=== PATIENT | female | born 1980 | race Caucasian/White ===

== ENCOUNTER 2016-04-17 20:26 | Emergency (ER) | payer BC, OTHER ==
[2016-04-17 20:44] VITALS: BP 101/70
[2016-04-17] MEDS ORDERED: Ibuprofen TAB* 600 MG PO ONE (21:05)
--- NOTE | 2016-04-17 21:16 | UC ---
FLU HPI - HPI Summary HPI Summary: 35 YEAR OLD FEMALE WITH COMPLAINTS OF SUDDEN ONSET OF FEVER, CHILLS, HEADACHE, SORE THROAT, BODY ACHES, AND COUGH LAST EVENING. 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 Negative: Vomiting, Diarrhea Related Hx: Possible Flu/Infectious Exposure - Risk Factors Influenza Risk Factors: Negative - Allergy/Home Medications Allergies/Adverse Reactions: Allergies Allergy/AdvReac Type Severity Reaction Status Date / Time Latex Allergy Intermediate Hives Verified 04/17/16 20:44 Home Medications: Home Medications Ibuprofen [Advil] 600 mg PO PRN 04/17/16 [History] Pseudoephedrine HCl [Sudafed Nasal Decongestan] 30 mg PO Q4HR PRN 04/17/16 [ History Confirmed 04/17/16] PMH/Surg Hx/FS Hx/Imm Hx Previously Healthy: Yes Endocrine History Of: Denies: Diabetes, Thyroid Disease Cardiovascular History Of: Denies: Cardiac Disorders, Hypertension Respiratory History Of: Denies: COPD, Asthma GI/ History Of: Denies: Ulcer - Surgical History Surgical History: None - Family History Known Family History: Negative: Hypertension, Diabetes - Social History Occupation: Employed Full-time - TEACHER Alcohol Use: Occasionally Substance Use Type: Marijuana Substance Use Comment - Amount & Last Used: infrequent usage Smoking Status (MU): Never Smoked Tobacco - Immunization History Most Recent Influenza Vaccination: no Review of Systems Constitutional: Fever, Chills Skin: Negative Eyes: Negative ENT: Sore Throat, Nasal Discharge Respiratory: Cough Cardiovascular: Negative Gastrointestinal: Negative Genitourinary: Negative Motor: Negative Neurovascular: Negative Musculoskeletal: Myalgia Neurological: Headache Psychological: Negative All Other Systems Reviewed And Are Negative: Yes Physical Exam Triage Information Reviewed: Yes Appearance: No Pain Distress, Well-Nourished, Ill-Appearing - MILDLY Vital Signs: Initial Vital Signs Temp 100.4 F 04/17/16 20:38 Pulse 113 04/17/16 20:38 Resp 16 04/17/16 20:38 BP 101/70 04/17/16 20:38 Pulse Ox 97 04/17/16 20:38 Vital Signs Reviewed: Yes Eyes: Positive: Conjunctiva Clear. Negative: Discharge ENT: Positive: Pharyngeal erythema, Nasal congestion, Tonsillar swelling, Tonsillar exudate. Negative: Nasal drainage Neck: Positive: Supple, Nontender, Enlarged Nodes @ - BILATERAL AC Respiratory: Positive: Lungs clear, Normal breath sounds Cardiovascular: Positive: RRR, No Murmur Musculoskeletal: Positive: Strength Intact, ROM Intact Neurological: Positive: Alert, Muscle Tone Normal Psychological: Positive: Age Appropriate Behavior - PLEASANT AND COOPERATIVE Skin: Negative: rashes Flu Course/Dx - Course Course Of Treatment: RAPID STREP - NEGATIVE. RAPID INFLUENZA - INFLUENZA A POSITIVE. IBUPROFEN - Differential Dx/Diagnosis Differential Diagnosis/HQI/PQRI: Influenza, Upper Respiratory Infection Provider Diagnoses: INFLUENZA A Discharge - Discharge Plan Condition: Stable Disposition: HOME Patient Education Materials: Influenza (ED) Additional Instructions: YOU HAVE DECLINED THE TAMAFLU PRESCRIPTION. IF YOU START THE MEDICATION WITH IN THE FIRST 3 DAYS IT COULD SHORTEN THE DURATION OF YOUR ILLNESS AND POTENTIALLY LESSEN YOUR SYMPTOMS. CALL YOUR DOCTOR IF YOU CHANGE YOUR MIND Take Ibuprofen 600mg every 6 hour as needed for pain or fever
== END 2016-04-17 21:53 | disposition home or self-care (01) ==
LOC: UCEAST 20:26
DX: J09.X2 Influenza due to identified novel influenza A virus with other respiratory manifestations (principal); F12.90 Cannabis use, unspecified, uncomplicated
CPT/HCPCS: 87502; 87651; 99212; A9270-GY; G0463

== ENCOUNTER 2016-09-11 14:54 | Emergency (ER) | payer BC ==
[2016-09-11] MEDS ORDERED: Aspirin Low Dose CHEW TAB* 81 MG PO ONE (15:11)
[2016-09-11] MEDS ORDERED: Aspirin Low Dose CHEW TAB* 81 MG ONE (15:13)
[2016-09-11 15:14] VITALS: BP 150/98
[2016-09-11] MEDS ORDERED: NS 0.9% 1000 ML* 1,000 ML IV ONE (15:18)
[2016-09-11] MEDS ORDERED: Heparin 2 UNITS/ML IVPREMIX* 3,000 ML IV ONE (15:23)
[2016-09-11] MEDS ORDERED: fentaNYL* 50 MCG/ML 2 ML VIAL (100 MCG VIAL) ONE (15:23)
[2016-09-11] MEDS ORDERED: nitroGLYCERIN DRIP* 250 ML ONE (15:23)
[2016-09-11] MEDS ORDERED: Midazolam* 1 MG/ML 5 ML VIAL (5 MG) ONE (15:23)
[2016-09-11] MEDS ORDERED: Lidocaine 1% INJ* 10 MG/ML 30 ML SDV ONE (15:24)
[2016-09-11] MEDS ORDERED: Iohexol 350 (CONTRAST) 200 ML MDV IV ONE ×2 (15:24→16:19)
[2016-09-11] MEDS ORDERED: NS 0.9% 1000 ML* 1,000 ML BOLUS SCH (15:30)
[2016-09-11] MEDS ORDERED: Ticagrelor* 90 MG TAB PO ONE (15:36)
[2016-09-11] MEDS ORDERED: Heparin(*) 1000 UNIT/ML 10 ML VIAL CATH LAB IV ONE (15:36)
--- NOTE | 2016-09-11 15:43 | UC ---
Olman Yeung Benjamin, scribed for Wilma Newman MD on 09/11/16 at 1515 . Cardiac HPI - HPI Summary HPI Summary: 36yo female c/o having mid sternal chest pressure this morning around 0730 that radiates to bilateral arms and jaw, then tingling in bilateral arms and with feeling like her arms are asleep. This sensation is worse on the right arm. Pt also states that she felt hot earlier today. Pt symptoms started to gradually get worse after lunch. Now, she quotes feels weird, just doesn't feel well. Pt rates the pain as 3-4 out of 10 scale. FHx of CAD after 70, no FHx of CVA or PE. Pt denies any PMHx of CAD. 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 No DM, HTN or dyslipidemia. - History of Current Complaint Chief Complaint: UCChestPain Stated Complaint: ARM PAIN Time Seen by Provider: 09/11/16 14:59 Hx Obtained From: Patient Onset/Duration: Gradual Onset, Lasting Hours - since this morning 0730, Still Present, Worse Since - gradually worsened throughout the day Timing: Constant Initial Severity: Mild Current Severity: Mild Pain Intensity: 4 Chest Pain Location: Mid Sternal Character: Pressure/Squeezing Aggravating: Nothing Alleviating: Nothing Associated Signs & Symptoms: Positive: Chest Pain - radiates to bilateral arms. Negative: SOB - Risk Factors Pulmonary Embolism Risk Factors: Negative Cardiac Risk Factors: Family History - after age 70 Atrial Fibrillation: Negative TAD Risk Factors: Negative AMI/ACS Risk Factors: Obesity - Allergy/Home Medications Allergies/Adverse Reactions: Allergies Allergy/AdvReac Type Severity Reaction Status Date / Time Latex Allergy Intermediate Hives Verified 09/11/16 15:06 PMH/Surg Hx/FS Hx/Imm Hx Previously Healthy: Yes - Surgical History Surgical History: None - Family History Known Family History: Positive: Cardiac Disease - CAD after 70 Negative: Hypertension, Diabetes - Social History Occupation: Employed Full-time - school counselor Lives: With Family - has a Nirmala Alcohol Use: Occasionally Substance Use Type: Marijuana Substance Use Comment - Amount & Last Used: infrequent usage Smoking Status (MU): Never Smoked Tobacco - Immunization History Most Recent Influenza Vaccination: no Review of Systems Constitutional: Negative Skin: Negative Eyes: Negative ENT: Negative Respiratory: Negative Cardiovascular: Chest Pain - Mid sternal pressure, radiating to bilat arms. Gastrointestinal: Negative Genitourinary: Negative Motor: Negative Neurovascular: Negative Musculoskeletal: Negative Neurological: Negative Psychological: Negative All Other Systems Reviewed And Are Negative: Yes Physical Exam Triage Information Reviewed: Yes Appearance: Ill-Appearing, Pain Distress, Obese Vital Signs: Initial Vital Signs Temp 97.7 F 09/11/16 15:06 Pulse 65 09/11/16 15:06 Resp 16 09/11/16 15:06 BP 150/98 09/11/16 15:06 Pulse Ox 100 09/11/16 15:06 Vital Signs Reviewed: Yes Eyes: Positive: Conjunctiva Clear ENT: Positive: Normal ENT inspection, Hearing grossly normal. Negative: Muffled /hoarse voice Neck: Positive: Supple, Nontender, No Lymphadenopathy, Other: - no JVD Respiratory: Positive: Lungs clear, Normal breath sounds, No respiratory distress Cardiovascular: Positive: RRR, No Murmur, Pulses Normal, Brisk Capillary Refill Abdomen Description: Positive: Nontender, No Organomegaly, Soft. Negative: CVA Tenderness (R), CVA Tenderness (L), Distended, Guarding, Hepatomegaly, McBurney' s Point Tenderness, Peritoneal Signs, Pulsatile Mass, Splenomegaly Musculoskeletal: Positive: Strength Intact, ROM Intact Neurological: Positive: Alert, Muscle Tone Normal Psychological Exam: Normal Skin Exam: Normal Diagnostics - EKG Cardiac Rate: NL - 64bpm Cardiac Rhythm: Sinus: Normal - EKG taken at 1459. ST Segment: : Normal - Acute STEMI v2-v6 and I and AVL. - Assessment/Plan Course Of Treatment: Allergies noted. ASA 324 given; IV NS x 2 started; STEMI protocol activated at 15:10. discussed with Dr. Huerta and Dr. Melo. 36 yo F otherwise healthy, with no known cardiac risk factors, no systemic diseases, no medications presents with chest pressure radiating to arms and jaw and EKG consistent with STEMI in ant wall. - Differential Diagnoses - Chest Pain Differential Diagnosis/HQI/PQRI: Acute [place], ACS - Clinical Impression Provider Diagnoses: STEMI, anterior wall - Physician Notifications Discussed Patient Care With: Dr. Melo (Interventional Cardio) at 1510. Dr. Huerta (Emergency Medicine) at 1511. Instructed by Provider To: Transfer Discharge - Discharge Plan Condition: Stable Disposition: TRANS HIGHER LVL OF CARE FAC The documentation as recorded by the Olman centeno Benjamin accurately reflects the service I personally performed and the decisions made by me, Wilma Newman MD.
== END 2016-09-11 15:30 | disposition short-term general hospital (02) ==
LOC: UCEAST 14:54
DX: I21.09 ST elevation (STEMI) myocardial infarction involving other coronary artery of anterior wall (principal); E66.9 Obesity, unspecified; Z91.040 Latex allergy status
CPT/HCPCS: 93005; 96365; 99213; A9270-GY; G0463; J1644; J2001; J2250; J3010

== ENCOUNTER 2016-09-11 15:39 | Inpatient (IN) | payer BC ==
[2016-09-11 15:49] LABS: Hematocrit 39 % (35-47); Mean Corpuscular HGB Conc 33 g/dl (31-36); Mean Corpuscular Hemoglobin 26 pg (27-31); Mean Corpuscular Volume 80 fL (80-97); Mean Platelet Volume 9 um3 (7.4-10.4); Red Blood Count 4.92 10^6/ul (4.0-5.4); Red Cell Distribution Width 14 % (10.5-15); White Blood Count 11.5 10^3/ul (3.5-10.8)
[2016-09-11 16:08] LABS: Troponin I 0.37 ng/mL (<0.04)
[2016-09-11 16:09] LABS: Albumin 4.5 g/dL (3.2-5.2); BUN/Creatinine Ratio 18.2 (8-20); Calcium 9.5 mg/dL (8.6-10.3); EGFR African American 109.7 (>60); EGFR Non-African American 85.3 (>60); Globulin 3.2 g/dL (2-4); Potassium 3.7 mmol/L (3.5-5.0); Total Bilirubin 0.6 mg/dL (0.2-1.0); Total Protein 7.7 g/dL (6.4-8.9)
[2016-09-11] MEDS ORDERED: Nitroglycerin TAB 0.4 MG* 0.4 MG TAB SL PRN (17:09)
[2016-09-11] MEDS ORDERED: oxyCODONE/Acetamin 5/325 MG* TAB PO PRN (17:14)
[2016-09-11] MEDS ORDERED: Zolpidem TAB* 5 MG PO PRN (17:14)
[2016-09-11] MEDS ORDERED: Ondansetron INJ* 2 MG/ML VIAL IV PRN (17:14)
[2016-09-11] MEDS ORDERED: Docusate CAP* 100 MG PO PRN (17:14)
[2016-09-11] MEDS ORDERED: Acetaminophen TAB* 325 MG PO PRN (17:14)
[2016-09-11] MEDS ORDERED: fentaNYL* 50 MCG/ML 2 ML VIAL (100 MCG VIAL) IV PRN (17:14)
[2016-09-11] MEDS: Metoprolol Tartrate TAB* 25 MG PO SCH ×2 (18:34→21:11)
[2016-09-11] MEDS: Atorvastatin* 80 MG TAB PO SCH (18:35)
[2016-09-11] MEDS: amLODIPine TAB* 5 MG PO SCH (18:36)
[2016-09-11] MEDS ORDERED: Atropine SYRINGE* 0.1 MG/ML 10 ML SYRINGE (1 MG) ONE (19:36)
[2016-09-11] MEDS: Atropine SYRINGE* 0.1 MG/ML 10 ML SYRINGE (1 MG) IV ONE (20:03)
[2016-09-11] MEDS: Ticagrelor* 90 MG TAB PO SCH (21:26)
[2016-09-11] MEDS: NS 0.9% 1000 ML* 1,000 ML IV SCH (21:28)
[2016-09-11 22:21] LABS: Troponin I 12.81 ng/mL (<0.04)
[2016-09-11] MEDS: Sertraline* 100 MG TAB PO SCH (22:43)
[2016-09-11] MEDS ORDERED: NS 0.9% 500 ML BAG* 500 ML IV ONE (23:00)
[2016-09-12] MEDS: NS 0.9% 1000 ML* 1,000 ML IV SCH (01:44)
[2016-09-12] MEDS: Atropine SYRINGE* 0.1 MG/ML 10 ML SYRINGE (1 MG) IV ONE (03:48)
[2016-09-12 04:10] LABS: Hematocrit 33 % (35-47); Hemoglobin 10.9 g/dl (12.0-16.0); Mean Corpuscular HGB Conc 33 g/dl (31-36); Mean Corpuscular Hemoglobin 26 pg (27-31); Mean Corpuscular Volume 80 fL (80-97); Mean Platelet Volume 9 um3 (7.4-10.4); Red Blood Count 4.16 10^6/ul (4.0-5.4); Red Cell Distribution Width 14 % (10.5-15); White Blood Count 12.2 10^3/ul (3.5-10.8)
[2016-09-12 04:20] LABS: Add Diff/Slide Review? Slide Review Added; Comments Flag Yes
[2016-09-12 04:28] LABS: Albumin 3.7 g/dL (3.2-5.2); BUN/Creatinine Ratio 14.5 (8-20); Calcium 8.5 mg/dL (8.6-10.3); EGFR African American 161.8 (>60); EGFR Non-African American 125.8 (>60); Globulin 2.6 g/dL (2-4); HDL Cholesterol 28.4 mg/dL; Potassium 3.7 mmol/L (3.5-5.0); Total Bilirubin 0.9 mg/dL (0.2-1.0); Total Protein 6.3 g/dL (6.4-8.9)
[2016-09-12 06:18] LABS: Troponin I 24.04 ng/mL (<0.04)
--- NOTE | 2016-09-12 09:10 | ECHO ---
Patient: AMANDA BRAND [facility] Rec#: [id number] : 1980 Date: 09/12/2016 Age: 36y Height: 175.26 cm / 69.0 in Weight: 95.25 kg / 209.9 lbs Sex: F BSA: 2.11 Room#: [facility] Admit Date#: 09/11/2016 Type: Inpatient Referring: Ranulfo Melo MD Reading: Ranulfo Melo MD Vending Machine Attendant: Chuyita Florian RDCS CC: Ofelia Dwyer MD Transthoracic Echocardiogram Indication: S/P PCI, STEMI BP: 102/50 HR: 61 Rhythm: NSR with PVCs Indications Acute Myocardial Infarction Findings History: Anterior Wall STEMI 09/11/2016. Technical Comments: The study quality is fair. The study is technically limited due to patient body habitus. Left Ventricle: The left ventricular chamber size is normal. There is no left ventricular hypertrophy. There is a focal wall motion abnormality present.The apex is severely hypokinetic. There is normal left ventricular systolic function. The estimated ejection fraction is 55-60%. Normal left ventricular diastolic filling is observed. Left Atrium: The left atrial chamber size is normal. Right Ventricle: The right ventricular cavity size is normal. The right ventricular global systolic function is normal. Right Atrium: The right atrium is slightly dilated. Aortic Valve: The aortic valve is trileaflet. There is no evidence of aortic regurgitation. There is no evidence of aortic stenosis. Mitral Valve: The mitral valve leaflets are mildly thickened. There is a trace of mitral regurgitation. There is no evidence of mitral stenosis. Tricuspid Valve: The tricuspid valve leaflets are normal. There is trace tricuspid regurgitation. No pulmonary hypertension is noted. There is no tricuspid stenosis. Pulmonic Valve: The pulmonic valve appears normal. There is a trace pulmonic regurgitation. There is no pulmonic stenosis. Pericardium: There is no pericardial effusion. Aorta: There is no dilatation of the ascending aorta. There is no dilatation of the aortic arch. There is no dilation of the aortic root. Pulmonary Artery: The main pulmonary artery is not well visualized. Venous: The inferior vena cava appears normal in size. There is a greater than 50% respiratory change in the inferior vena cava dimension. Conclusions The left ventricular chamber size is normal. There is a focal wall motion abnormality present. There is a focal wall motion abnormality present.The apex is severely hypokinetic. The estimated ejection fraction is 55-60%. Normal left ventricular diastolic filling is observed. No significant valvular disease: There is a trace of mitral regurgitation. There is trace tricuspid regurgitation. No pulmonary hypertension is noted. There is a trace pulmonic regurgitation. No reports of prior studies offered for comarison. Measurements Name Value Normal Range RVIDd (AP) 2D 2.7 cm (0.9 - 2.6) RVDdMajor (2D) 3.6 cm (2.2 - 4.4) RAd ISD 4CH 5.1 cm (3.4 - 4.9) RA (A4C)W 4 cm (2.9 - 4.6) IVSd (2D) 1 cm (0.6 - 1) LVPWd (2D) 1 cm (0.6 - 1) LVIDd (2D) 4.6 cm (3.6 - 5.4) LVIDs (2D) 2.7 cm - LV FS (2D) 42 % (25 - 45) Aortic Annulus 1.8 cm (1.4 - 2.6) Ao root diameter (2D) 2.7 cm (2.1 - 3.5) Ascending Ao 2.9 cm (2.1 - 3.4) Aortic arch 2 cm (1.8 - 3.4) LA dimension (AP) 2D 4.1 cm (2.3 - 3.8) LAd ISD 4CH 4.5 cm (2.9 - 5.3) LA ISD 4CH W 4 cm (2.5 - 4.5) Name Value Normal Range LA ESV SP 4CH (A/L) 39 ml - LA ESV SP 2CH (A/L) 57 ml - LA ESV BP (A/L) 48 ml - LA ESV BP (A/L) index 22.59 ml/m2 - LA ESV SP 4CH (MOD) 38 ml - LA ESV SP 2CH (MOD) 53 ml - Name Value Normal Range MV E-wave Vmax 0.88 m/sec - MV deceleration time 190.99 msec - MV A-wave Vmax 0.57 m/sec - MV E:A ratio 1.5 ratio - LV septal e' Vmax 0.09 m/sec - LV lateral e' Vmax 0.12 m/sec - Name Value Normal Range AV Vmax 1.5 m/sec - AV VTI 35.1 cm - AV peak gradient 9 mmHg - AV mean gradient 5 mmHg - LVOT Vmax 1.19 m/sec - LVOT VTI 29.89 cm - LVOT peak gradient 5.66 mmHg - LVOT mean gradient 3.39 mmHg - ADELSO Vmax 0.97 m/sec - Name Value Normal Range TR Vmax 2.2 m/sec - TR peak gradient 19 mmHg - RAP 3 mmHg - RVSP 22 mmHg - IVC diameter 1.9 cm - Name Value Normal Range PV Vmax 0.8 m/sec - PV peak gradient 2.8 mmHg -
[2016-09-12] MEDS: Metoprolol Tartrate TAB* 25 MG PO SCH ×2 (09:50→21:27)
[2016-09-12] MEDS: Aspirin Low Dose CHEW TAB* 81 MG PO SCH (09:51)
[2016-09-12] MEDS: Ticagrelor* 90 MG TAB PO SCH ×2 (09:51→21:27)
[2016-09-12] MEDS: amLODIPine TAB* 5 MG PO SCH (09:51)
[2016-09-12 11:57] LABS: Troponin I 12.16 ng/mL (<0.04)
--- NOTE | 2016-09-12 12:55 | HP ---
CC: Migue Saucedo NP * HISTORY AND PHYSICAL: DATE OF ADMISSION: 09/11/16 CHIEF COMPLAINT: Chest discomfort, bilateral arm discomfort. HISTORY OF PRESENT ILLNESS: The patient is a pleasant 36-year-old female with no prior known cardiac history. Specifically, she denies any history of myocardial infarction, congestive heart failure, significant heart rhythm disturbance. The patient stated that she developed the onset of a chest heavy sensation when getting out of her car and starting to walk into work in the morning of the admission. The symptom persisted and started waxing and waning throughout the day. It would involve both arms as well with perhaps numbness in her arms going to her hands. the right arm greater than left. After lunch, it started becoming somewhat worse and she also had some nauseousness and a hot feeling. She denied any significant shortness of breath. Eventually , the symptom started worsening and she presented to [facility] care. She was noted to have ST segment elevations in the inferior leads and as such, a STEMI alert was called and she was transferred to [facility]. In the emergency room at [facility], she was still having ongoing symptoms. An EKG by [facility] had documented persistent ST segment elevation in the anterior leads. The risks and benefits of cardiac catheterization were explained to her briefly when she was brought in by the paramedics, she understood them and decision was made being that she was hemodynamically stable to bypass the emergency room and go directly to the cardiovascular laboratory. PAST MEDICAL HISTORY: Significant for depression for which she is currently on medication. Cardiac risk factors include negative history of smoking, negative history of diabetes. No known history of hypertension, no known history of increased cholesterol and no immediate family history of coronary artery disease. ALLERGIES: No known drug allergies. REVIEW OF SYSTEMS: Pertinent to proceeding emergently to the cardiovascular laboratory - she denied any history of TIA or stroke, any history of bleeding disorder, any history of hematochezia, hematemesis or hematuria. She had no known dye allergy. PHYSICAL EXAMINATION VITAL SIGNS: When I saw her on the ambulance gurney in the emergency room revealed blood pressure 129/70, pulse is in the 80s, respirations 16, O2 saturation 98%. HEENT: Conjunctivae were pink. Sclerae clear. NECK: Supple. There is no increased JVP. Carotids had good upstroke and volume without bruits. LUNGS: Reveal no accessory muscle usage. There was good excursion. Lungs were relatively clear to A and P. HEART: Revealed no visible heaves. No palpable heaves or thrills. Normal S1, S2. There was no significant S3, S4 gallop. No significant systolic or diastolic murmur. ABDOMEN: Mildly obese. Soft, nontender. EXTREMITIES: Without clubbing, cyanosis, adan pitting edema. Peripheral pulses intact. NEUROLOGIC: The patient is alert and oriented with normal mentation. MUSCULOSKELETAL: The patient with normal gait. PSYCHIATRIC: The patient with normal affect. LABORATORY DATA: Electrocardiogram dated 09/11/16 from [facility] revealed sinus rhythm, heart rate 64, OR interval was 0.14, QRS is 0.08, QT 0.41 , axis is +[address] segment elevation noted mildly in V1, more prominent in V2 through V5 suggesting an injury pattern. OVERALL ASSESSMENT: Ruth presents now with stuttering symptoms throughout the day, more persistent in nature starting late after lunch with EKG documented being ST segment elevation. At this point in time, the risks and benefits of cardiac catheterization were explained. She understood them and wished to proceed emergently to the cardiovascular laboratory, where assessment will be made with evaluation of coronary anatomy. Further management will be made pending results of this. She is being bypassed by the emergency room and heparin therapy and Brilinta therapy will be given immediately on entrance into the cardiovascular laboratory. [id number]/[facility] #: [id number] MTDD
[2016-09-12] MEDS: Atorvastatin* 80 MG TAB PO SCH (18:01)
[2016-09-12] MEDS: Sertraline* 100 MG TAB PO SCH (21:27)
--- NOTE | 2016-09-13 04:52 | CATH ---
CC: Migue Saucedo NP * CARDIAC CATHETERIZATION AND INTERVENTIONAL REPORT: DATE OF CATH: 09/11/2016 - ROOM #ICU-12 REASON FOR CARDIAC CATHETERIZATION: The patient presents with acute ST-segment elevation anterior wall myocardial infarction with chest and bilateral arm discomfort. PROCEDURE: Coronary arteriography, left heart catheterization, left ventriculography, balloon angioplasty, and placement of a 2.25 x 38 mm long Synergy drug-eluting stent in the tif-sw-ullbkh LAD. DESCRIPTION OF PROCEDURE: The patient was interviewed and examined in the emergency room where the risks and benefits were explained. She understood them and wished to proceed. She was brought emergently to the cardiovascular laboratory where a formal time-out was performed. The patient was prepped and draped in a sterile fashion. The right groin area was anesthetized with 1% lidocaine. The right femoral artery was cannulated and a 6.5-Kosovan Merit sheath was placed. Coronary arteriography was performed using a 5-Kosovan Jason 4-curve catheter for the right coronary artery. The left coronary artery was cannulated utilizing a VL 3.5 curve 6-Kosovan guide catheter. Of note , the patient had received Brilinta 180 mg on arrival into the laborer pipelines as well as heparin 6500 units. At this point, the qqo-ge-kkyrtw LAD was found to be totally occluded and the concern of a possibility of fixed lesion versus spasm was made. 150 mcg of intracoronary nitroglycerin was given with no change to the vessel. An ACT was checked and found to be 242. A 0.014 BMW guidewire was advanced down the LAD distal to the total obstruction. An injection was then performed and it did not show any further opening of this artery. As such, additional intracoronary nitroglycerin was administered without any improvement. Decision was made to perform a low-pressure balloon inflation in the hwt-js-lenndk area and as such, a 2.0 x 20 mm long Emerge balloon was advanced at the point distal to the total obstruction and dilatations were made to 8 atmospheres initially. There was no significant improvement to the flow, higher pressure was obtained as well. Following this, injection was made. There was noted to be dissection within the mid segment of the LAD and as such, decision was made to place a stent in the mid LAD area and as such, a 2.25 x 38 mm long Synergy drug-eluting stent was deployed. It was still noted that distal to this area was total occlusion and further boluses of intracoronary nitroglycerin were given. Additional heparin of 2000 units had been given earlier. A 1.5-mm Emerge balloon was advanced into the distal portion and low inflations were made to the distal area of the LAD without any significant improvement. Nitroglycerin again was given. Following this, the decision was made to abort any further attempts to open the most distal portion of the LAD given the fact that it appeared to be small in caliber. The wire was removed and final injections were made to make sure there was no evidence of perforation and none was seen. Following this, a 5-Kosovan pigtail catheter was advanced to the ascending aorta where central aortic pressure was recorded. Catheter was then passed across the aortic valve into the left ventricle where left ventricular pressure was recorded. Left ventriculography was performed utilizing a total of 24 cc of Omnipaque dye at a rate of 12 cc per second. Catheter was then pulled back across the aortic valve to recheck gradient. At the end of the case, the sheath was sutured in place to be pulled manually in the intensive care unit as there was more than one stick utilized to cannulate the femoral artery. No closure device was deployed. The total contrast used was 245 cc of Omnipaque dye. The radiation exposure included 9.9 minutes of fluoro. The air kerma radiation was 1969 mGy. The DAP radiation was 11,506 microgray per sq. m. RESULTS: HEMODYNAMIC DATA: Left heart catheterization - central aortic pressure recorded at 115/74 with a mean of 93. Left ventricular pressure 116 over left ventricular end- diastolic pressure of 8. LEFT VENTRICULOGRAPHY: Performed in the STREET projection revealed focal area of apical severe hypokinesis with preservation of the inferior wall as well as the anterior wall extending toward the apical region. The overall ejection fraction was noted to be approximately 55%. There was no significant mitral regurgitation identified. CORONARY ARTERIOGRAPHY: A. Left coronary artery: 1. Left main: Widely patent. 2. Left anterior descending artery: Of note, it appeared somewhat corkscrew in appearance and was totally occluded in the lnj-da-lopxiv portion. The first and second diagonal branches showed no significant disease. 3. Circumflex artery - a nondominant vessel supplying thin first and second obtuse marginal branch ending in a low-lying bifurcating obtuse marginal branch which was corkscrew in appearance in its qvi-ow-dkczsf region. B. Right coronary artery: A dominant vessel supplying the PDA and 2 posterior left ventricular branches. There was tapering of the distal vessels, but no significant obstruction noted. INTERVENTION INTO [id number]-AE-ZXAZGY LAD: Balloon angioplasty and placement of a 2.25 x 38 mm long Synergy drug- eluting stent with significant improvement in the caliber of the lzk-gl-mnydot vessel, but with continued total obstruction past this point with no flow to the apical region. OVERALL ASSESSMENT: Bbi-ow-auucva left anterior descending artery disease as described above with improvement of flow to glp-gg-eylsgu area, but clearly not to the most distal or apical region. At this point in time, the patient will be maintained on dual-antiplatelet therapy, amlodipine will be added for low-dose therapy for possible spasm given the fact that low-dose beta irving therapy will also be administered. High-dose statin therapy will be instituted at this point as well. Further management will be made pending her overall course over the next 24 to 48 hours. [id number]/[facility] #: [id number] MEGHANN
[2016-09-13] MEDS: amLODIPine TAB* 5 MG PO SCH (08:46)
[2016-09-13] MEDS: Metoprolol Succinate XL TAB* 25 MG PO SCH (08:47)
[2016-09-13] MEDS: Ticagrelor* 90 MG TAB PO SCH ×2 (08:47→22:13)
[2016-09-13] MEDS: Aspirin Low Dose CHEW TAB* 81 MG PO SCH (08:47)
[2016-09-13 16:33] VITALS: BP 104/70
[2016-09-13] MEDS: Atorvastatin* 80 MG TAB PO SCH (16:42)
[2016-09-13] MEDS: Sertraline* 100 MG TAB PO SCH (22:12)
[2016-09-14] MEDS: Metoprolol Succinate XL TAB* 25 MG PO SCH (09:17)
[2016-09-14] MEDS: Ticagrelor* 90 MG TAB PO SCH (09:17)
[2016-09-14] MEDS: Aspirin Low Dose CHEW TAB* 81 MG PO SCH (09:17)
[2016-09-14] MEDS: amLODIPine TAB* 5 MG PO SCH (09:20)
--- NOTE | 2016-09-14 12:19 | DS ---
CC: NedTIMOTHY Lucas * DISCHARGE SUMMARY: DATE OF ADMISSION: 09/11/16 DATE OF DISCHARGE: 09/14/16 FINAL DIAGNOSES: 1. Acute ST-segment elevation anterior wall myocardial infarction. 2. History of depression. HISTORY: The patient is a 36-year-old female with no prior known cardiac history. Please refer to the H and P for complete details of presentation. In brief summary, she developed the onset of chest pressure sensation with bilateral arm discomfort, right greater than left with numbness while walking into work on the date of admission. This symptom waxed and waned somewhat throughout the day, but clearly got worse after lunch. At that time, she noted some mild nauseousness with this with worsening of the chest pressure sensation. She sought medical attention going to [facility], where an EKG suggested acute ST-segment elevations in the precordial leads. She was transferred emergently to [facility] and was admitted to the emergency room with ongoing symptoms and EKGs have persisted to show ST-segment elevation. The risks and benefits of cardiac catheterization were explained and she was brought emergently to the cardiovascular laboratory. Cardiac catheterization was performed and revealed a totally occluded [id number]-[id number] left anterior descending artery with tapering of the artery to a significant degree before the total occlusion. Of note, intracoronary nitroglycerin was administered before any type of intervention was performed to assess for the potential for spasm and there was no significant relief of any obstruction to this area. A wire was then placed down the artery and more nitroglycerin was given with no improvement. A balloon angioplasty and stenting of the gri-ei-[id number] segment of the LAD was performed, but flow to the most distal portion of the LAD, apical region, and onto the distal inferior wall was not able to be achieved. In selected views, the artery appeared to be extremely small in caliber despite multiple administrations of nitroglycerin intracoronary. Following this, the hospital course included cardiac enzymes peaking at 983 total CPK with 179 MB and a troponin of 24. An echocardiogram during the course of the hospitalization demonstrated a focal area of apical severe hypo to akinesis with an overall ejection fraction of 55% to 60% with no significant valvular disease. Of note, she had had ecchymosis to the right groin area and with hydration, she had a mild decrease in her hemoglobin from 13 to 10.9. She was eventually up and about, stable, without any recurrent chest, jaw, or arm discomfort. PHYSICAL EXAMINATION: On the day of discharge, vital signs were stable. Neck was supple with no increased JVP. Carotid had good upstroke and volume without bruits. Conjunctivae were pink. Sclerae were clear. Lungs revealed no accessory muscle usage. There was good excursion. Lungs were clear to A and P. Heart revealed no visible heaves, no palpable heaves or thrills. Normal S1 , S2 with no S3, S4, or gallop. No significant systolic or diastolic murmur were appreciated. Abdomen was soft and nontender without organomegaly. Extremities were without clubbing, cyanosis, or adan pitting edema. The right groin area had ecchymosis, but was soft in nature. Good femoral pulse was present without bruit. Distal pulses were intact. The patient had normal gait. Musculoskeletal: The patient moves all extremities appropriately. Psychological: The patient with normal affect. DIAGNOSTIC STUDIES/LAB DATA: Electrocardiogram on 09/13/16 showed evolution of the anterior wall infarction with biphasic T-waves in V1 through V5. There was poor R-wave progression in V1 out to V4 with small R-wave in V5 and V6. DISCHARGE MEDICATIONS: Included: 1. Amlodipine 2.5 mg a day for the potential of spasm involved. 2. Metoprolol succinate 25 mg once a day. 3. Atorvastatin 80 mg once a day. 4. Aspirin 81 mg a day. 5. Brilinta 90 mg b.i.d. 6. Sublingual nitroglycerin as needed p.r.n. Her home medications were continued includin. Sertraline 200 mg daily. 2. Zyrtec 10 mg on a need be basis. I reviewed with her all of the discharge information. I reviewed her stent card and her cardiac education booklet, which she had already started reading. She will have a followup appointment with me next week for ongoing cardiac management and reassessment of her wound. I answered all of her questions and her partner's questions to their satisfaction. [id number]/[facility] #: [id number] MTDChago
== END 2016-09-14 11:40 | disposition home or self-care (01) | DRG 174 ==
LOC: ED 15:39 → ICU 17:35 → MEDTELE 09-13 15:37
PROVIDERS: ADMIT Internal Medicine Cardiovascular Disease; ATTEND Internal Medicine Cardiovascular Disease
PROC: B2151ZZ Fluoroscopy of Left Heart using Low Osmolar Contrast (ICD-10-PCS; 2016-09-11)
PROC: 4A023N7 Measurement of Cardiac Sampling and Pressure, Left Heart, Percutaneous Approach (ICD-10-PCS; 2016-09-11)
PROC: 027034Z Dilation of Coronary Artery, One Artery with Drug-eluting Intraluminal Device, Percutaneous Approach (ICD-10-PCS; 2016-09-11)
PROC: B2111ZZ Fluoroscopy of Multiple Coronary Arteries using Low Osmolar Contrast (ICD-10-PCS; principal; 2016-09-11 15:00)
DX: I21.09 ST elevation (STEMI) myocardial infarction involving other coronary artery of anterior wall (principal); R71.0 Precipitous drop in hematocrit; F32.9 Major depressive disorder, single episode, unspecified; I25.10 Atherosclerotic heart disease of native coronary artery without angina pectoris; S30.1XXA Contusion of abdominal wall, initial encounter
CPT/HCPCS: 36415; 80053; 80061; 82550; 82553; 83605; 83721; 83880; 84484; 85025; 85610; 85730; 93005; 93306; 96365; 99213; A9270-GY; C1725; C1769; C1876; C9606-LD; G0463; J0461; J1644; J2001; J2250; J3010

== ENCOUNTER 2016-10-28 20:39 | Emergency (ER) | payer BC ==
[2016-10-28 20:43] VITALS: BP 119/69
[2016-10-28] MEDS ORDERED: Lidocaine 1% MPF* 2 ML VIAL INJ ONE (21:38)
--- NOTE | 2016-10-28 22:33 | UC ---
Laceration HPI - HPI Summary HPI Summary: RIGHT FOURTH FINGER LACERATION ON SOUP LID. TWO HOURS FENCE INSTALLER. ON BLOOD THINNERS DUE TO RECENT VA - History Of Current Complaint Chief Complaint: UCLaceration Stated Complaint: FINGER LAC Time Seen by Provider: 10/28/16 21:41 Hx Obtained From: Patient, Family/Front End Developer Javascript Html Css Laceration Location: Finger Mechanism Of Injury: Sharp Trauma Onset/Duration: Sudden Onset, Lasting Hours, Still Present Severity: Mild Aggravating Factors: Position, Movement Related History: Dominant Hand Right - Allergies/Home Medications Allergies/Adverse Reactions: Allergies Allergy/AdvReac Type Severity Reaction Status Date / Time Latex Allergy Intermediate Hives Verified 09/11/16 15:06 PMH/Surg Hx/FS Hx/Imm Hx Previously Healthy: Yes - Surgical History Surgical History: Yes Surgery Procedure, Year, and Place: WISDOM TEETH stent placed - Family History Known Family History: Positive: Cardiac Disease - CAD after 70 Negative: Hypertension, Diabetes - Social History Occupation: Employed Full-time Lives: With Family Alcohol Use: Occasionally Substance Use Type: Marijuana Substance Use Comment - Amount & Last Used: infrequent usage Smoking Status (MU): Never Smoked Tobacco - Immunization History Most Recent Influenza Vaccination: no Most Recent Pneumonia Vaccination: none Review of Systems Constitutional: Negative Skin: Other - LACERATION RIGHT FOURTH FINGER Eyes: Negative ENT: Negative Respiratory: Negative Cardiovascular: Negative Gastrointestinal: Negative Genitourinary: Negative Motor: Negative Neurovascular: Negative Musculoskeletal: Negative Neurological: Negative Psychological: Negative All Other Systems Reviewed And Are Negative: Yes Physical Exam Triage Information Reviewed: Yes Appearance: Well-Appearing, No Pain Distress, Well-Nourished Vital Signs: Initial Vital Signs Temp 98.5 F 10/28/16 20:40 Pulse 97 10/28/16 20:40 Resp 16 10/28/16 20:40 BP 119/69 10/28/16 20:40 Pulse Ox 100 10/28/16 20:40 Vital Signs Reviewed: Yes Eye Exam: Normal ENT Exam: Normal Dental Exam: Normal Neck exam: Normal Neck: Positive: Supple, Nontender Respiratory Exam: Normal Respiratory: Positive: Chest non-tender, Lungs clear, Normal breath sounds, No respiratory distress, No accessory muscle use Cardiovascular Exam: Normal Cardiovascular: Positive: RRR, No Murmur Abdominal Exam: Normal Musculoskeletal Exam: Normal Musculoskeletal: Positive: Strength Intact, ROM Intact Neurological Exam: Normal Neurological: Positive: Alert Psychological Exam: Normal Psychological: Positive: Normal Response To Family Skin: Positive: Other - LACERATION RIGHT FOURTH FINGER Laceration Repair - Laceration Repair 1 Description: Irregular Laceration Size After Repair: Length (cm) - 1.5 Type Injection: Digital Anesthesia Used: 2.0% Lido Cleansing Completed Via Routine Prep: Yes Irrigation With Pressure Irrigation Device: Yes Closure Material: Sutures - 3 X 4-0 PROLENE Suture Of: Skin Suture Type: Prolene Laceration Course/Dx - Differential Dx - Laceration/Wound Differental Diagnoses: Laceration Provider Diagnoses: LACERATION RIGHT FOURTH FINGER Discharge - Discharge Plan Condition: Stable Disposition: HOME Patient Education Materials: Finger Laceration (ED) Referrals: Migue Saucedo NP [Primary Care Provider] -
== END 2016-10-28 22:48 | disposition home or self-care (01) ==
LOC: UCEAST 20:39
DX: S61.214A Laceration without foreign body of right ring finger without damage to nail, initial encounter (principal); W26.8XXA Contact with other sharp object(s), not elsewhere classified, initial encounter; F12.90 Cannabis use, unspecified, uncomplicated; Z91.040 Latex allergy status
CPT/HCPCS: 12001; 99211; G0463

== ENCOUNTER 2017-03-16 16:53 | Emergency (ER) | payer BC ==
[2017-03-16 18:18] LABS: Hematocrit 37 % (35-47); Hemoglobin 12.4 g/dl (12.0-16.0); Mean Corpuscular HGB Conc 34 g/dl (31-36); Mean Corpuscular Hemoglobin 28 pg (27-31); Mean Corpuscular Volume 83 fL (80-97); Mean Platelet Volume 10 um3 (7.4-10.4); Red Blood Count 4.44 10^6/ul (4.0-5.4); Red Cell Distribution Width 15 % (10.5-15); White Blood Count 7.9 10^3/ul (3.5-10.8)
[2017-03-16 18:33] LABS: Albumin 4.2 g/dL (3.2-5.2); Calcium 9.4 mg/dL (8.6-10.3); EGFR African American 158.4 (>60); EGFR Non-African American 123.2 (>60); Globulin 3.1 g/dL (2-4); Potassium 3.8 mmol/L (3.5-5.0); Total Bilirubin 0.7 mg/dL (0.2-1.0); Total Protein 7.3 g/dL (6.4-8.9)
--- NOTE | 2017-03-16 19:00 | RAD ---
Indication: LEFT side chest pain/pressure. Previous GA. Comparison: No relevant prior exams available on the [facility] PACS for comparison. Technique: Upright AP 1819 hours Report: Clear lungs and pleural spaces. Negative for pneumothorax. The heart, pulmonary vasculature, and mediastinal contours are unremarkable. Unremarkable osseous structures and soft tissue contours. IMPRESSION: No evidence for acute intrathoracic disease.
--- NOTE | 2017-03-16 22:00 | ED ---
Hussain Yeung Gabriel, scribed for Dayton Mcclain MD on 03/16/17 at 1809 . HPI Chest Pain - HPI Summary HPI Summary: This patient is a 36 year old F resenting to [facility] with a chief complaint of left sided CP since last night. The patient rates the sharp pain 2/10 in severity. Symptoms aggravated by movement. Symptoms alleviated by lying down. Patient denies nausea, diaphoresis, and SOB. Pt had an UT 6 months ago and had a stent put in since then she has been taking ASA every day. - History of Current Complaint Chief Complaint: EDChestPainROMI Time Seen by Provider: 03/16/17 17:56 Hx Obtained From: Patient Onset/Duration: Started Days Ago - 1, Still Present Initial Severity: Moderate Current Severity: Mild Pain Intensity: 2 Pain Scale Used: 0-10 Numeric Chest Pain Location: Left Anterior Chest Pain Radiates: No Character: Other: - sharp Aggravating Factor(s): Movement Alleviating Factor(s): Other: - lying Associated Signs and Symptoms: Positive: Negative - denies nausea, diaphoresis, and SOB - Additional Pertinent History Primary Care Physician: XU - Allergy/Home Medications Allergies/Adverse Reactions: Allergies Allergy/AdvReac Type Severity Reaction Status Date / Time Latex Allergy Intermediate Hives Verified 09/11/16 15:06 PMH/Surg Hx/FS Hx/Imm Hx Previously Healthy: No Endocrine/Hematology History: Denies: Hx Diabetes, Hx Thyroid Disease Cardiovascular History: Denies: Hx Hypertension Respiratory History: Denies: Hx Asthma, Hx Chronic Obstructive Pulmonary Disease (COPD) GI History: Denies: Hx Ulcer Sensory History: Reports: Hx Contacts or Glasses Denies: Hx Hearing Aid Opthamlomology History: Reports: Hx Contacts or Glasses Psychiatric History: Reports: Hx Depression - MDD with PTSD - Surgical History Surgery Procedure, Year, and Place: WISDOM TEETH stent placed Infectious Disease History: No Infectious Disease History: Denies: Hx Clostridium Difficile, Hx Hepatitis, Hx Human Immunodeficiency Virus (HIV), Hx of Known/Suspected MRSA, Hx Shingles, Hx Tuberculosis, Hx Known/ Suspected VRE, Hx Known/Suspected VRSA, History Other Infectious Disease, Traveled Outside the [place] in Last 30 Days - Family History Known Family History: Positive: Cardiac Disease - CAD after 70 Negative: Hypertension, Diabetes - Social History Alcohol Use: Occasionally Substance Use Type: Reports: Marijuana Substance Use Comment - Amount & Last Used: infrequent usage Smoking Status (MU): Never Smoked Tobacco Review of Systems Negative: Skin Diaphoresis Positive: Chest Pain Negative: Shortness Of Breath Negative: Nausea All Other Systems Reviewed And Are Negative: Yes Physical Exam - Summary Physical Exam Summary: Appearance: The patient is well-nourished in no acute distress and in no acute pain. Skin: The skin is warm and dry and skin color reflects adequate perfusion. HEENT: The head is normocephalic and atraumatic. The pupils are equal and reactive. The conjunctivae are clear and without drainage. Nares are patent and without drainage. Mouth reveals moist mucous membranes and the throat is without erythema and exudate. The external ears are intact. The ear canals are patent and without drainage. The tympanic membranes are intact. Neck: the neck is supple with full range of motion and non-tender. There are no carotid bruits. There is no neck vein distension. Respiratory: Chest is non-tender. Lungs are clear to auscultation and breath sounds are symmetrical and equal. Cardiovascular: Heart is regular rate and rhythm. There is no murmur or rub auscultated. There is no peripheral edema and pulses are symmetrical and equal. Abdomen: The abdomen is soft and non-tender. There are normal bowel sounds heard in all four quadrants and there is no organomegaly palpated. Musculoskeletal: There is no back tenderness noted. Extremities are non-tender with full range of motion. There is good capillary refill. There is no peripheral edema or calf tenderness elicited. Neurological: Patient is alert and oriented to person, place and time. The patient has symmetrical motor strength in all four extremities. Cranial nerves are grossly intact. Deep tendon reflexes are symmetrical and equal in all four extremities. Psychiatric: The patient has an appropriate affect and does not exhibit any anxiety or depression. Triage Information Reviewed: Yes Vital Signs On Initial Exam: Initial Vitals Temp Pulse Resp BP Pulse Ox 97 F 65 16 132/68 100 03/16/17 16:59 03/16/17 16:59 03/16/17 16:59 03/16/17 16:59 03/16/17 16:59 Vital Signs Reviewed: Yes Diagnostics - Vital Signs Vital Signs Temp Pulse Resp BP Pulse Ox 03/16/17 16:59 97 F 65 16 132/68 100 - Laboratory Lab Results: Lab Results 03/16/17 03/16/17 03/16/17 Range/Units 18:08 18:08 18:08 WBC 7.9 (3.5-10.8) 10^3/ul RBC 4.44 (4.0-5.4) 10^6/ul Hgb 12.4 (12.0-16.0) g/dl Hct 37 (35-47) % MCV 83 (80-97) fL MCH 28 (27-31) pg MCHC 34 (31-36) g/dl RDW 15 (10.5-15) % Plt Count 206 (150-450) 10^3/ul MPV 10 (7.4-10.4) um3 Neut % (Auto) 64.0 (38-83) % Lymph % (Auto) 27.5 (25-47) % [place] % (Auto) 5.9 (1-9) % Eos % (Auto) 2.3 (0-6) % Baso % (Auto) 0.3 (0-2) % Absolute Neuts (auto) 5.1 (1.5-7.7) 10^3/ul Absolute Lymphs (auto) 2.2 (1.0-4.8) 10^3/ul Absolute Monos (auto) 0.5 (0-0.8) 10^3/ul Absolute Eos (auto) 0.2 (0-0.6) 10^3/ul Absolute Basos (auto) 0 (0-0.2) 10^3/ul Absolute Nucleated RBC 0.01 10^3/ul Nucleated RBC % 0.1 Sodium 136 (133-145) mmol/L Potassium 3.8 (3.5-5.0) mmol/L Chloride 104 (101-111) mmol/L Carbon Dioxide 27 (22-32) mmol/L Anion Gap 5 (2-11) mmol/L BUN 14 (6-24) mg/dL Creatinine 0.56 (0.51-0.95) mg/dL Est GFR ( Amer) 158.4 (>60) Est GFR (Non-Af Amer) 123.2 (>60) BUN/Creatinine Ratio 25.0 H (8-20) Glucose 95 (70-100) mg/dL Lactic Acid 0.4 L (0.5-2.0) mmol/L Calcium 9.4 (8.6-10.3) mg/dL Total Bilirubin 0.70 (0.2-1.0) mg/dL AST 13 (13-39) U/L ALT 11 (7-52) U/L Alkaline Phosphatase 78 (34-104) U/L Troponin I 0.00 (<0.04) ng/mL Total Protein 7.3 (6.4-8.9) g/dL Albumin 4.2 (3.2-5.2) g/dL Globulin 3.1 (2-4) g/dL Albumin/Globulin Ratio 1.4 (1-3) 03/16/17 Range/Units 21:10 WBC (3.5-10.8) 10^3/ul RBC (4.0-5.4) 10^6/ul Hgb (12.0-16.0) g/dl Hct (35-47) % MCV (80-97) fL MCH (27-31) pg MCHC (31-36) g/dl RDW (10.5-15) % Plt Count (150-450) 10^3/ul MPV (7.4-10.4) um3 Neut % (Auto) (38-83) % Lymph % (Auto) (25-47) % [place] % (Auto) (1-9) % Eos % (Auto) (0-6) % Baso % (Auto) (0-2) % Absolute Neuts (auto) (1.5-7.7) 10^3/ul Absolute Lymphs (auto) (1.0-4.8) 10^3/ul Absolute Monos (auto) (0-0.8) 10^3/ul Absolute Eos (auto) (0-0.6) 10^3/ul Absolute Basos (auto) (0-0.2) 10^3/ul Absolute Nucleated RBC 10^3/ul Nucleated RBC % Sodium (133-145) mmol/L Potassium (3.5-5.0) mmol/L Chloride (101-111) mmol/L Carbon Dioxide (22-32) mmol/L Anion Gap (2-11) mmol/L BUN (6-24) mg/dL Creatinine (0.51-0.95) mg/dL Est GFR ( Amer) (>60) Est GFR (Non-Af Amer) (>60) BUN/Creatinine Ratio (8-20) Glucose (70-100) mg/dL Lactic Acid (0.5-2.0) mmol/L Calcium (8.6-10.3) mg/dL Total Bilirubin (0.2-1.0) mg/dL AST (13-39) U/L ALT (7-52) U/L Alkaline Phosphatase (34-104) U/L Troponin I 0.00 (<0.04) ng/mL Total Protein (6.4-8.9) g/dL Albumin (3.2-5.2) g/dL Globulin (2-4) g/dL Albumin/Globulin Ratio (1-3) Result Diagrams: 03/16/17 18:08 03/16/17 18:08 Lab Statement: Any lab studies that have been ordered have been reviewed, and results considered in the medical decision making process. - Radiology CXR Radiology Interpretation Completed By: Radiologist - No evidence for acute intrathoracic disease. ED physician has reviewed this radiology report. - EKG 1700 Cardiac Rate: NL EKG Rhythm: Sinus Rhythm - at 66 BPM EKG Interpretation: No STEMI, No ischemia Chest Pain Course/Dx - Course Course Of Treatment: Ms. Price presented after about 24 hours of chest pain. She has a history of a LAD stent a few months ago with inability to completely open up the distal segments. Her initial troponin and ecg were normal and I anticipate that she will go home when her repeat trop is negative. I consulted with Dr. Breaux. - Diagnoses Provider Diagnoses: Chest pain - Provider Notifications Discussed Care Of Patient With: Popeye Breaux Time Discussed With Above Provider: 20:48 Instructed by Provider To: Other - Discussed patient care with Dr. Breaux, cardiology. He recommends to repeat the troponin. Discharge - Discharge Plan Condition: Stable Disposition: HOME Referrals: Migue Saucedo, ROLLER MACHINE OPERATOR [Primary Care Provider] - Additional Instructions: Return to the emergency department for new or worsening symptoms. The documentation as recorded by the Hussain centeno Gabriel accurately reflects the service I personally performed and the decisions made by me, Dayton Mcclain MD.
[2017-03-16 22:08] VITALS: BP 103/68
== END 2017-03-16 22:08 | disposition home or self-care (01) ==
LOC: ED 16:53
DX: R07.9 Chest pain, unspecified (principal); F43.10 Post-traumatic stress disorder, unspecified; F32.9 Major depressive disorder, single episode, unspecified; I25.2 Old myocardial infarction; Z79.82 Long term (current) use of aspirin
CPT/HCPCS: 36415; 71010; 80053; 83605; 84484; 85025; 93005; 99283

== ENCOUNTER 2017-05-15 16:10 | Emergency (ER) | payer BC ==
[2017-05-15 16:23] VITALS: BP 120/63
--- NOTE | 2017-05-15 18:52 | UC ---
Rosibel Yeung Julia, scribed for Addy Samuels MD on 05/15/17 at 1632 . Cardiac HPI - HPI Summary HPI Summary: This patient is a 36 year old F presenting to [facility] with a chief complaint of up to 40 minute intermittent pressurized mid sternal CP and SOB since 4:45 this morning. Patient reports skin diaphoresis, heart burn, calf pain while running. Patient denies cough, nausea, abdominal pain, bowel or urinary changes. The patient rates the pain 2/10 in severity. Symptoms unchanged by any action. Symptoms are not similar to previous [place] in September of 2016. Patient reports higher stress. - History of Current Complaint Stated Complaint: CHEST PAIN Time Seen by Provider: 05/15/17 16:19 Hx Obtained From: Patient, Medical Records Hx Last Menstrual Period: 04/06/2017 Onset/Duration: Lasting Hours Timing: Intermittent Episodes Lasting: - up to 40 minutes Pain Intensity: 3 Chest Pain Location: Mid Sternal Character: Pressure/Squeezing Aggravating Factor(s): Nothing Alleviating Factor(s): Nothing Associated Signs & Symptoms: Positive: Chest Pain, Recent Stress, SOB, Diaphoresis, Calf Pain/Swelling - Allergy/Home Medications Allergies/Adverse Reactions: Allergies Allergy/AdvReac Type Severity Reaction Status Date / Time MS Latex [Latex] Allergy Intermediate Hives Verified 05/15/17 16:31 PMH/Surg Hx/FS Hx/Imm Hx Cardiovascular History: Myocardial Infarction - Surgical History Surgical History: Yes Surgery Procedure, Year, and Place: WISDOM TEETH stent placed - Family History Known Family History: Positive: Cardiac Disease - CAD after 70 Negative: Hypertension, Diabetes - Social History Alcohol Use: Occasionally Substance Use Type: Marijuana Substance Use Comment - Amount & Last Used: infrequent usage Smoking Status (MU): Never Smoked Tobacco - Immunization History Most Recent Influenza Vaccination: no Most Recent Pneumonia Vaccination: none Review of Systems Constitutional: Other - diaphoresis Respiratory: Shortness Of Breath Cardiovascular: Chest Pain Gastrointestinal: Negative - abdominal pain and nausea, Other - heart burn Genitourinary: Negative Musculoskeletal: Calf Tenderness All Other Systems Reviewed And Are Negative: Yes Physical Exam Triage Information Reviewed: Yes Vital Signs: Initial Vital Signs Temp 97.2 F 05/15/17 16:16 Pulse 69 05/15/17 16:16 Resp 18 05/15/17 16:16 BP 120/63 05/15/17 16:16 Pulse Ox 100 05/15/17 16:16 Vital Signs Reviewed: Yes - Additional Comments General: well-appearing, no pain distress Skin: warm, color reflects adequate perfusion, dry Head: normal Eyes: EOMI, BEAR ENT: normal Neck: supple, nontender Respiratory: CTA, breath sounds present Cardiovascular: RRR, mild tenderness to palpation at L sternal border Abdomen: soft, nontender Bowel: present Musculoskeletal: normal, strength/ROM intact Neurological: normal, sensory/motor intact, A&O x3 Psychological: affect/mood appropriate Diagnostics - EKG Cardiac Rate: NL - at 69 Cardiac Rhythm: Sinus: Normal Ectopy: None ST Segment: Normal - Assessment/Plan Course Of Treatment: NORMAL EKG IN CLINIC. I TOLD THE PATIENT TO GO TO THE EMERGENCY DEPARTMENT FOR FURTHER EVALUATION OF HER CHEST PAIN. WE DISCUSSED GOING TO THE EMERGENCY DEPARTMENT BY AMBULANCE; THE PATIENT DECLINED. SHE SAID SHE WILL GO BY POV. - Clinical Impression Provider Diagnoses: CHEST PAIN Discharge - Discharge Plan Condition: Stable Disposition: HOME Patient Education Materials: Chest Pain (ED) Referrals: Migue Saucedo ENERGY ASSISTANT [Primary Care Provider] - Additional Instructions: GO DIRECTLY TO THE EMERGENCY DEPARTMENT FOR FURTHER EVALUATION OF YOUR CHEST PAIN. CALL 911 AND TAKE AN AMBULANCE IF THE PAIN RETURNS OR YOU FEEL WORSE. The documentation as recorded by the Rosibel centeno Julia accurately reflects the service I personally performed and the decisions made by me, Addy Samuels MD.
== END 2017-05-15 16:40 | disposition home or self-care (01) ==
LOC: UCEAST 16:10
DX: R07.2 Precordial pain (principal); R06.02 Shortness of breath; R61 Generalized hyperhidrosis; M79.669 Pain in unspecified lower leg; R12 Heartburn; I25.2 Old myocardial infarction; Z91.040 Latex allergy status
CPT/HCPCS: 93005; 99212; G0463

== ENCOUNTER 2017-07-30 11:13 | Emergency (ER) | payer BC ==
[2017-07-30 11:49] VITALS: BP 113/77
--- NOTE | 2017-07-30 11:50 | ED ---
HPI Chest Pain - HPI Summary HPI Summary: 36 yo WF h/o [place] last year s/p PCI with stent x1 p/w recurrent left sided substernal CP associated with nausea and mild diaphoresis, took ASA x 1, no early fxhx of [place] - History of Current Complaint Chief Complaint: UCCardiac Time Seen by Provider: 07/30/17 11:36 Hx Obtained From: Patient Hx Last Menstrual Period: today Timing: Constant, Intermittent Initial Severity: Moderate Current Severity: Moderate Pain Intensity: 7 Chest Pain Location: Mid Sternal, Lower Sternal, Left Lateral Chest Pain Radiates To:: Shoulder Character: Sharp/Stabbing Aggravating Factor(s): Nothing Alleviating Factor(s): Nothing Associated Signs and Symptoms: Positive: Chest Pain - Additional Pertinent History Primary Care Physician: XU - Allergy/Home Medications Allergies/Adverse Reactions: Allergies Allergy/AdvReac Type Severity Reaction Status Date / Time latex Allergy Intermediate Hives Verified 07/30/17 11:39 Home Medications: Home Medications Cholecalciferol (Vitamin D3) [Vitamin D3] 1,000 unit PO DAILY 07/30/17 [History Confirmed 07/30/17] Metoprolol Succinate XL TAB* [Toprol XL TAB*] 12.5 mg PO DAILY 07/30/17 [ History Confirmed 07/30/17] PMH/Surg Hx/FS Hx/Imm Hx Previously Healthy: Yes Endocrine/Hematology History: Denies: Hx Diabetes, Hx Thyroid Disease Cardiovascular History: Denies: Hx Hypertension Respiratory History: Denies: Hx Asthma, Hx Chronic Obstructive Pulmonary Disease (COPD) GI History: Denies: Hx Ulcer Sensory History: Reports: Hx Contacts or Glasses Denies: Hx Hearing Aid Opthamlomology History: Reports: Hx Contacts or Glasses Psychiatric History: Reports: Hx Depression - MDD with PTSD - Surgical History Surgery Procedure, Year, and Place: WISDOM TEETH stent placed Infectious Disease History: No Infectious Disease History: Denies: Hx Clostridium Difficile, Hx Hepatitis, Hx Human Immunodeficiency Virus (HIV), Hx of Known/Suspected MRSA, Hx Shingles, Hx Tuberculosis, Hx Known/ Suspected VRE, Hx Known/Suspected VRSA, History Other Infectious Disease, Traveled Outside the [place] in Last 30 Days - Family History Known Family History: Positive: Cardiac Disease - CAD after 70 Negative: Hypertension, Diabetes - Social History Alcohol Use: Occasionally Substance Use Type: Reports: Marijuana Substance Use Comment - Amount & Last Used: infrequent usage Smoking Status (MU): Never Smoked Tobacco Review of Systems Constitutional: Negative Eyes: Negative ENT: Negative Positive: Chest Pain Respiratory: Negative Gastrointestinal: Negative Musculoskeletal: Negative Skin: Negative All Other Systems Reviewed And Are Negative: Yes Physical Exam Triage Information Reviewed: Yes Vital Signs On Initial Exam: Initial Vitals Temp Pulse Resp BP Pulse Ox 36.8 C 80 18 139/69 99 07/30/17 11:17 07/30/17 11:17 07/30/17 11:17 07/30/17 11:17 07/30/17 11:17 Vital Signs Reviewed: Yes Appearance: Positive: No Pain Distress Skin: Positive: Warm Eyes: Positive: Normal ENT: Positive: Normal ENT inspection Neck: Positive: Supple Respiratory/Lung Sounds: Positive: Clear to Auscultation Cardiovascular: Positive: RRR, S1, S2 Abdomen Description: Positive: Nontender Musculoskeletal: Positive: Normal Neurological: Positive: Normal Diagnostics - Vital Signs Vital Signs Temp Pulse Resp BP Pulse Ox 07/30/17 11:17 36.8 C 80 18 139/69 99 - Laboratory Lab Statement: Any lab studies that have been ordered have been reviewed, and results considered in the medical decision making process. Chest Pain Course/Dx - Course Course Of Treatment: EKG- NSR no acute STT changes or TWI, called [facility] and informed Dr Huerta that pt is coming to ED for chest pain r/o ACS - Chest Pain Differential Diagnosis/HQI/PQRI: ACS, Angina, Chest Wall - Diagnoses Provider Diagnoses: Chest pain Discharge - Sign-Out/Discharge Documenting (check all that apply): Discharge/Admit/Transfer - Discharge Plan Condition: Stable Disposition: [facility] Patient Education Materials: Chest Pain (ED) Referrals: Migue Saucedo [facility] [facility] [Primary Care Provider] - Additional Instructions: Go to ER via Ambulance [facility] - Billing Disposition and Condition Condition: STABLE Disposition: EMTALA
== END 2017-07-30 11:49 | disposition short-term general hospital (02) ==
LOC: UCEAST 11:13
DX: R07.2 Precordial pain (principal); R11.0 Nausea; R61 Generalized hyperhidrosis; I25.2 Old myocardial infarction; Z95.5 Presence of coronary angioplasty implant and graft; F32.9 Major depressive disorder, single episode, unspecified; Z91.040 Latex allergy status
CPT/HCPCS: 93005; 99213; G0463

== ENCOUNTER 2017-07-30 12:09 | Observation (INO) | payer BC ==
[2017-07-30] MEDS ORDERED: Nitroglycerin TAB 0.4 MG* 0.4 MG TAB SL ONE (12:33)
[2017-07-30 13:10] LABS: ABS Basophils 0 10^3/ul (0-0.2); ABS Eosinophils 0.2 10^3/ul (0-0.6); ABS Lymphocytes 1.6 10^3/ul (1.0-4.8); ABS Monocytes 0.5 10^3/ul (0-0.8); ABS Neutrophils 4.7 10^3/ul (1.5-7.7); ABS Nucleated RBC 0 10^3/ul; Eosinophil % 2.7 % (0-6); Hematocrit 34 % (35-47); Hemoglobin 11.4 g/dl (12.0-16.0); Mean Corpuscular HGB Conc 34 g/dl (31-36); Mean Corpuscular Hemoglobin 28 pg (27-31); Mean Corpuscular Volume 81 fL (80-97); Mean Platelet Volume 10.3 um3 (7.4-10.4); Nucleated Red Blood Cells % 0.1; Platelet Count 177 10^3/ul (150-450); Red Blood Count 4.14 10^6/ul (4.0-5.4); Red Cell Distribution Width 14 % (10.5-15)
[2017-07-30 13:23] LABS: EGFR Non-African American 147.2 (>60)
--- NOTE | 2017-07-30 13:46 | RAD ---
Indication: Chest pain 2 views of the chest demonstrate no mediastinal shift. Heart is of normal size and configuration. Lung parson are clear. IMPRESSION: No active cardiopulmonary disease is noted.
[2017-07-30] MEDS ORDERED: Ondansetron INJ* 2 MG/ML VIAL IV PRN (13:57)
[2017-07-30] MEDS ORDERED: Acetaminophen TAB* 325 MG PO PRN (13:57)
--- NOTE | 2017-07-30 15:31 | HP ---
CC: Migue Saucedo NP* HISTORY AND PHYSICAL: DATE OF ADMISSION: 07/30/17 PRIMARY CARE PROVIDER: Migue Saucedo NP ATTENDING PHYSICIAN WHILE IN THE HOSPITAL: Dr. Juan Gonsales* (report dictated by Bijan Tom NP) CHIEF COMPLAINT: Chest pain. HISTORY OF PRESENT ILLNESS: Ms. Price is a 36-year-old female patient that has a history of acute TX, status post stenting to the LAD in September of 2016. I will refer you to that report for details. Also, a history of CAD, depression, hyperlipidemia. She comes in to our ER today. She says that about 7 o'clock this morning, she woken up. She was getting ready for work and she noticed that she was having some sharp stabbing pain in the left side of her chest. She did state that she worked out yesterday, she was on the elliptical. She had no chest pain while doing that. No pressure or heaviness. She describes this pain as a sharp, stabbing pain. It did get worse when she leaned forward. She said that she has not been feeling short of breath. There has been no calf pain or leg pain. No recent trips or travel. No recent surgeries. She said the pain has been constant. She noticed that when she went to lean in to get in to her car, she had significant worsening of the pain. The pain persisted throughout the morning at school. There was concern because of her history and she decided to come in to the ER. There has been no association with shortness of breath or diaphoresis with the exception when she leaned forward, she got diaphoretic because it took her breath away that is how much pain she had. She denies any abdominal pain. There have been no recent URI symptoms. She does state that she did smoke some marijuana on Friday, which does not do very often. She denies having any chest pain with exertion. There has been no abdominal pain. No fevers, chills. No vomiting, no diarrhea. She does state that she is currently menstruating and that does make her feel nauseous at times. She was concerned because of the pain. She came in, was evaluated. Given her history, we were asked to evaluate for admission. PAST MEDICAL HISTORY: Significant for: 1. CAD. 2. TX. 3. Depression. PAST SURGICAL HISTORY: Significant for: 1. Cardiac catheterization. 2. [place] teeth extraction. MEDICATIONS: Home medications include: 1. Vitamin D3 1000 units p.o. daily. 2. Zyrtec 10 mg p.o. daily as needed. 3. Lipitor 80 mg daily. 4. Aspirin 81 mg daily. 5. Norvasc 2.5 mg p.o. daily. 6. Brilinta 90 mg p.o. b.i.d. 7. Nitro 0.4 mg sublingual q.5 minutes x3 p.r.n. chest pain. 8. Toprol-XL 12.5 mg daily. 9. Zoloft 200 mg p.o. daily. ALLERGIES TO MEDICATIONS: Include LATEX. FAMILY HISTORY: She said both her parents to her knowledge are healthy. SOCIAL HISTORY: She does not smoke cigarettes. She does smoke marijuana very rarely. She rarely drinks alcohol. Surrogate decision maker is her , Nirmala. REVIEW OF SYSTEMS: There is no documented fever. She denies having any significant weight change. There is no double vision. There is no ear discharge. She denies having any rhinorrhea. There is no sore throat. No thyroid enlargement. She did admit to chest pain from my HPI. There was no shortness of breath. There was no abdominal pain. There is no nausea, no vomiting. No dysuria, no frequency. There was no seizure, no loss of consciousness. No pruritus and no skin ulceration. Review of 14 systems was completed, all others negative. PHYSICAL EXAMINATION GENERAL: At this time, Ms. Price is a 36-year-old female patient. She is sitting in the ED stretcher. She does not appear to be in any acute distress. VITAL SIGNS: Blood pressure 109/74, pulse 88, respirations 16, O2 sat 98%, temperature 98.3. HEENT: Head: Atraumatic, normocephalic. Eyes: EOMs are intact. Sclerae anicteric and not pale. Throat: Oral mucosa appears to be moist. No oropharyngeal erythema. NECK: Supple. LUNGS: Clear to auscultation bilaterally. No wheezes, rales, or rhonchi. HEART: Sounds S1, S2. Regular rate and rhythm. No murmurs, rubs, or gallops. ABDOMEN: Soft, flat, nontender. Bowel sounds were present. EXTREMITIES: Pulses were 2+ throughout. She is able to move all 4 extremities with 5/5 strength. NEUROLOGIC: The patient is awake, alert. She is oriented x3. Tongue is midline. Plan Manager were equal. She had no gross focal deficits. SKIN: Intact. DIAGNOSTIC STUDIES/LAB DATA: WBC of 7, RBC of 4.14, hemoglobin 11.4, hematocrit 34, platelet count of 177. Sodium 138, potassium of 4.0, chloride of 107, bicarb 26, BUN 15, creatinine 0.48, glucose 104, lactate 0.6, calcium 8.9. Total bili 0.8, AST 12, ALT 11, alk phos 71. Troponin 0. Albumin of 3.9. She also had a chest x-ray obtained today, impression: No active cardiopulmonary disease is noted. She did have an EKG obtained today as well, which shows a normal sinus rhythm, rate of 60. I did not appreciate any ST elevations or T-wave inversions. An EKG in May appears to be unchanged. Old medical records were reviewed. I did review the cath report from Dr. Melo. I will refer you to that report for details. Old medical records were reviewed. ASSESSMENT AND PLAN: Ms. Price is a 36-year-old female patient coming into the ED today with complaints of chest pain. We were asked to evaluate for admission. She will be admitted under observation status for: 1. Chest pain. The pain is atypical. It is worse when sitting forward. She did recently smoke marijuana. She may certainly have an inflammation secondary to this irritant, which is causing the discomfort. My plan would be to get ESR , CRP. Her EKG looks stable. We will cycle her troponins. Given her high risk factors, I do think a stress test is warranted, which I have ordered for the patient and we will continue to follow. She is on aspirin, statin, beta irving, and Brilinta, we will continue. 2. Coronary artery disease. Continue the aspirin, statin, beta irving, and Brilinta, and can cycle her troponins and get serial EKGs. 3. History of depression. Continue supportive care. 4. DVT prophylaxis. I will place her on SCDs. 5. Code status. Full code. 6. Fluids, electrolytes, and nutrition. She can have a heart-healthy diet and then she will be n.p.o. after midnight. TIME SPENT: On admission 60 minutes, greater than half the time was spent face- to- face with the patient obtaining my history and physical, other half the time was spent going over the plan of care with the patient and implementing plan of care. I did discuss the plan of care with my attending, Dr. Gonsales; he is in agreement. BIJAN TOM NP [id number]/[facility] #: [id number] MEGHANN
[2017-07-30] MEDS ORDERED: Atorvastatin* 80 MG TAB PO SCH (17:00)
[2017-07-30] MEDS ORDERED: Sertraline* 100 MG TAB PO SCH (21:00)
[2017-07-30] MEDS: Ticagrelor* 90 MG TAB PO SCH (21:10)
[2017-07-31 05:45] LABS: ABS Basophils 0 10^3/ul (0-0.2); ABS Eosinophils 0.2 10^3/ul (0-0.6); ABS Lymphocytes 2.1 10^3/ul (1.0-4.8); ABS Monocytes 0.5 10^3/ul (0-0.8); ABS Neutrophils 4.1 10^3/ul (1.5-7.7); ABS Nucleated RBC 0 10^3/ul; Eosinophil % 2.8 % (0-6); Hematocrit 36 % (35-47); Hemoglobin 11.9 g/dl (12.0-16.0); Lymphocyte % 30.4 % (25-47); Mean Corpuscular HGB Conc 33 g/dl (31-36); Mean Corpuscular Hemoglobin 27 pg (27-31); Mean Corpuscular Volume 82 fL (80-97); Nucleated Red Blood Cells % 0; Platelet Count 179 10^3/ul (150-450); Red Cell Distribution Width 14 % (10.5-15); White Blood Count 6.8 10^3/ul (3.5-10.8)
[2017-07-31 06:01] LABS: EGFR Non-African American 133.4 (>60)
[2017-07-31] MEDS ORDERED: amLODIPine TAB* 5 MG PO SCH (09:00)
[2017-07-31] MEDS ORDERED: Aspirin 81 mg CHEW TAB* 81 MG TAB.CHEW PO SCH (09:00)
[2017-07-31] MEDS ORDERED: Sertraline* 100 MG TAB PO SCH (09:00)
[2017-07-31] MEDS ORDERED: Metoprolol Succinate XL TAB* 25 MG PO SCH (09:00)
[2017-07-31 11:22] VITALS: BP 108/65
[2017-07-31] MEDS: Ticagrelor* 90 MG TAB PO SCH (12:14)
--- NOTE | 2017-07-31 13:06 | RAD ---
Edited for charges. Indication: Chest pain. Myocardial perfusion scan was performed utilizing 1 day protocol. Rest myocardial perfusion was performed after intravenous injection of 10.3 mCi of technetium 99m tetrofosmin. Treadmill stress study was performed and the maximum heart rate of cheek was 98% of maximum predicted value. 25.6 mCi of technetium 99 and tetrofosmin was then injected for the stress portion of the study. The left ventricle appears normal in size. There is a small fixed defect at the apex noted. No evidence of reversible change is noted. Ejection fraction at stress is 77%. There may be some apical hypokinesis noted. IMPRESSION: Apical defect of small size appears to BE fixed. Normal ejection fraction. ASSESSMENT: Low risk Based on imaging criteria from ACC/AHA 2002 Guideline Update for the Management of Patients With Chronic Stable Angina Table 23. Noninvasive Risk Stratification. MTDD
--- NOTE | 2017-07-31 13:48 | ED ---
Alicia Yeung Nilda, scribed for Oli Snyder MD on 07/30/17 at 1246 . HPI Chest Pain - HPI Summary HPI Summary: This patient is a 36 year old F presenting from [facility] [place] accompanied by family with a chief complaint of constant mild non-radiating mid-sternal CP (pressure) since this morning. 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 The patient rates the current pain 1/10 in severity. Symptoms aggravated by sitting up and alleviated by nothing. Patient denies dyspnea, cough, and SOB. Medications include Brilinta, Metroprolol, Amlodipine, and baby aspirin. LNMP. Pt states last stress test was in November. PMHx HI in September 2017. - History of Current Complaint Chief Complaint: EDChestPainROMI Time Seen by Provider: 07/30/17 12:23 Hx Obtained From: Patient Hx Last Menstrual Period: today Onset/Duration: Started Hours Ago, Still Present Timing: Constant Initial Severity: Severe Current Severity: Mild Pain Intensity: 1 Pain Scale Used: 0-10 Numeric Chest Pain Location: Mid Sternal Chest Pain Radiates: No Character: Pressure/Squeezing, Sharp/Stabbing Aggravating Factor(s): Position - sitting up Alleviating Factor(s): Nothing Associated Signs and Symptoms: Positive: Other: - denies dyspnea, cough, and SOB. - Additional Pertinent History Primary Care Physician: XU - Allergy/Home Medications Allergies/Adverse Reactions: Allergies Allergy/AdvReac Type Severity Reaction Status Date / Time latex Allergy Intermediate Hives Verified 07/30/17 11:39 PMH/Surg Hx/FS Hx/Imm Hx Endocrine/Hematology History: Denies: Hx Diabetes, Hx Thyroid Disease Cardiovascular History: Denies: Hx Hypertension Respiratory History: Denies: Hx Asthma, Hx Chronic Obstructive Pulmonary Disease (COPD) GI History: Denies: Hx Ulcer Sensory History: Reports: Hx Contacts or Glasses Denies: Hx Hearing Aid Opthamlomology History: Reports: Hx Contacts or Glasses Psychiatric History: Reports: Hx Depression - MDD with PTSD - Surgical History Surgery Procedure, Year, and Place: WISDOM TEETH stent placed Infectious Disease History: No Infectious Disease History: Denies: Hx Clostridium Difficile, Hx Hepatitis, Hx Human Immunodeficiency Virus (HIV), Hx of Known/Suspected MRSA, Hx Shingles, Hx Tuberculosis, Hx Known/ Suspected VRE, Hx Known/Suspected VRSA, History Other Infectious Disease, Traveled Outside the [place] in Last 30 Days - Family History Known Family History: Positive: Cardiac Disease - CAD after 70 Negative: Hypertension, Diabetes - Social History Alcohol Use: Occasionally Substance Use Type: Reports: Marijuana Substance Use Comment - Amount & Last Used: infrequent usage Smoking Status (MU): Never Smoked Tobacco Review of Systems Negative: Fever, Chills Negative: Erythema Negative: Sore Throat Positive: Chest Pain Positive: Other - negative dyspnea. Negative: Shortness Of Breath, Cough Negative: Abdominal Pain, Vomiting, Nausea Negative: dysuria, hematuria Negative: Edema Negative: Rash Neurological: Other - negative dizziness All Other Systems Reviewed And Are Negative: Yes Physical Exam - Summary Physical Exam Summary: Constitutional: Well-developed, Well-nourished, Alert. (-) Distressed Skin: Warm, Dry HENT: Normocephalic; Atraumatic Eyes: Conjunctiva normal Neck: Musculoskeletal ROM normal neck. (-) JVD, (-) Stridor, (-) Tracheal deviation Cardio: Rhythm regular, rate normal, Heart sounds normal; Intact distal pulses; The pedal pulses are 2+ and symmetric. Radial pulses are 2+ and symmetric. (-) Murmur Pulmonary/Chest wall: Effort normal. (-) Respiratory distress, (-) Wheezes, (-) Rales Abd: Soft, (-) Tenderness, (-) Distension, (-) Guarding, (-) Rebound Musculoskeletal: (-) Edema Lymph: (-) Cervical adenopathy Neuro: Alert, Oriented x3 Psych: Mood and affect Normal Triage Information Reviewed: Yes Vital Signs On Initial Exam: Initial Vitals Temp Pulse Resp BP Pulse Ox 98.3 F 88 16 109/74 98 07/30/17 12:16 07/30/17 12:16 07/30/17 12:16 07/30/17 12:16 07/30/17 12:16 Vital Signs Reviewed: Yes Diagnostics - Vital Signs Vital Signs Temp Pulse Resp BP Pulse Ox 07/30/17 12:16 98.3 F 88 16 109/74 98 - Laboratory Result Diagrams: 07/30/17 12:50 07/30/17 12:50 Lab Statement: Any lab studies that have been ordered have been reviewed, and results considered in the medical decision making process. - Radiology CXR Radiology Interpretation Completed By: Radiologist - CXR reveals no active cardiopulmonary disease is noted. Dr. Snyder has reviewed this radiology report. - EKG 1237 Cardiac Rate: NL - 60 bpm EKG Rhythm: Sinus Rhythm EKG Interpretation: no STEMI Chest Pain Course/Dx - Course Assessment/Plan: Pt has Hx CAD. Shell require r/o and provocative testing in the hospital. - Diagnoses Provider Diagnoses: Chest pain, unspecified - Provider Notifications Discussed Care Of Patient With: Tad Gonsales - Hospitalist Time Discussed With Above Provider: 12:56 Instructed by Provider To: Admit As Inpatient Discharge - Sign-Out/Discharge Documenting (check all that apply): Discharge/Admit/Transfer - Discharge Plan Condition: Stable Disposition: ADMITTED TO [facility] The documentation as recorded by the Alicia centeno Nilda accurately reflects the service I personally performed and the decisions made by Lillian morris Jerry, MD.
--- NOTE | 2017-07-31 21:29 | DS ---
CC: Dr. Melo; Migue Saucedo NP* DISCHARGE SUMMARY: DATE OF ADMISSION: 07/30/17 DATE OF DISCHARGE: 07/31/17 PRIMARY CARE PROVIDER: Migue Saucedo NP DISCHARGE DIAGNOSIS: Chest pain with low probability, cardiac stress test documented on 07/31/17. SECONDARY DIAGNOSES: 1. History of coronary artery disease status post stent placed during an acute ST elevation myocardial infarction documented in September of 2016. 2. History of depression. MEDICATIONS AT DISCHARGE: Are unchanged from admission and include: 1. Vitamin D3 1000 units daily. 2. Zyrtec 10 mg daily. 3. Lipitor 80 mg daily. 4. Aspirin 81 mg daily. 5. Norvasc 2.5 mg daily. 6. Brilinta 90 mg b.i.d. 7. Nitroglycerin 0.4 mg every 5 hours p.r.n. 8. Metoprolol succinate 12.5 mg daily. 9. Zoloft 200 mg daily. LABORATORY DATA AND STUDIES PERFORMED DURING THE HOSPITAL STAY: Included: ESR was 14. On 07/31/17, white blood cell count of 6.8, hemoglobin of 11.9, hematocrit of 36 , and platelets of 179. Sodium was 137, potassium 4.1, chloride 106, carbon dioxide 25, BUN 10, creatinine 0.52. Triglyceride was 78, total cholesterol was 75 , LDL of 26, and HDL of 33. Nuclear medicine cardiac stress test documented on 07/31/17 showed low risk. There was apical defect of small size then appeared to be fixed. The EF at stress was 77%. HOSPITALIZATION COURSE: Ruth Price is a 37-year-old female with history of coronary artery disease status post stenting in 2016 who presented complaining of chest pain. For further details, please see history and physical dictated at admission. Shortly, the patient did not have any further chest pain during her observation on telemetry monitored bed. In the morning on 07/31/17, she underwent cardiac stress test which was low probability for ischemia. At this point, the patient is going to be discharged home with recommendation to follow up with Dr. Melo and her primary care provider. The patient recommended to follow up with her primary care provider in approximately 4 to 7 days. PHYSICAL EXAMINATION AT THE TIME OF DISCHARGE: Blood pressure of 180/65, heart rate of 50 and regular, respiratory rate 16, oxygen saturation 100% on room air , temperature 97.6. General: The patient is a very pleasant 37-year-old female , who is in no acute distress. Alert, awake and oriented x3. HEENT: Head: Atraumatic, normocephalic. Eyes: Pupils are equal and reactive to light and accommodation. Oropharynx clear. Mucosa moist. Neck: Supple. No JVD. No bruits bilaterally. Cardiovascular: Regular rate and rhythm. No murmur. Respiratory: Clear to auscultation bilaterally. Abdomen: Soft, nontender. Bowel sounds are present in all 4 quadrants. Extremities: There is no edema. Pulses are +2 bilaterally. No clubbing or cyanosis. Neuro Evaluation: Nonfocal. Cranial nerves II through XII are grossly intact. Motor strength is 5/5 bilaterally. Please note that this is a short summary of the patient's hospitalization. Please refer to further medical records for details. [id number]/[facility] #: [id number] MTDD
== END 2017-07-31 14:46 | disposition home or self-care (01) ==
LOC: ED 12:09 → MEDTELE 12:56
PROVIDERS: ADMIT Internal Medicine; ATTEND Internal Medicine
DX: R07.9 Chest pain, unspecified (principal); I25.10 Atherosclerotic heart disease of native coronary artery without angina pectoris; I25.2 Old myocardial infarction; F32.9 Major depressive disorder, single episode, unspecified; Z79.899 Other long term (current) drug therapy; Z79.82 Long term (current) use of aspirin
CPT/HCPCS: 36415; 71046; 78452; 80048; 80053; 80061; 82550; 82553; 83036; 83605; 84484; 85025; 85379; 85652; 86140; 93005; 93017; 99284; A9270-GY; A9502; G0378

== ENCOUNTER 2018-02-22 15:09 | Observation (INO) | payer BC ==
[2018-02-22] MEDS ORDERED: Nitroglycerin TAB 0.4 MG* 0.4 MG TAB SL ONE (15:22)
[2018-02-22] MEDS ORDERED: Aspirin 81 mg CHEW TAB* 81 MG TAB.CHEW PO ONE (15:26)
--- NOTE | 2018-02-22 15:33 | ED ---
HPI Chest Pain - HPI Summary HPI Summary: A 37 y/o female presents to ED c/o of chest pain reaching 6/10 in severity. Currently, the patient is still experiencing chest pain reaching 4/10 in severity. As per triage, "chest pains, had an OR in September; left ant. descending stent; woke her from sleep @0400, radiating to back". According to the patient, she was woken up to experiencing severe heart burn at 0400 this morning. She noted that the heart burn did get slightly better, but it has been intermittent. She characterized the pain as pressure, however, sometimes she feels a sharp pain that goes through her back and jaw. She noted that she had a OR in September of 2016 and her symptoms are similar to what she felt pre-OR. She additionally noted that the symptoms started to get better, but then become worse, waxing and waning. Additional symptoms include difficulty breathing, nausea, appetite changes and general sickness. Patient is currently on Brilinta. Last stress test was done at [facility] [place] in July 2017 which came back negative. Last Fall, she underwent cardiac rehab. PMHx of no DM, HLD and HTN, has a stent in place. 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 No NTG was taken. Last night's dinner consisted of root beer, small salad, chicken nuggets and popcorn. - History of Current Complaint Chief Complaint: EDChestPainROMI Time Seen by Provider: 02/22/18 15:16 Hx Obtained From: Patient Hx Last Menstrual Period: today Onset/Duration: Started Hours Ago, Still Present Timing: Constant, Lasting Hours Initial Severity: Moderate Current Severity: Moderate Pain Intensity: 6 Pain Scale Used: 0-10 Numeric Chest Pain Radiates: Yes Chest Pain Radiates To:: Back, Jaw Character: Pressure/Squeezing, Sharp/Stabbing Aggravating Factor(s): Nothing Alleviating Factor(s): Nothing Associated Signs and Symptoms: Positive: Chest Pain, Shortness of Breath, Nausea , Back Pain. Negative: Fever - Additional Pertinent History Primary Care Physician: XU - Allergy/Home Medications Allergies/Adverse Reactions: Allergies Allergy/AdvReac Type Severity Reaction Status Date / Time latex Allergy Intermediate Hives Verified 02/22/18 16:54 Home Medications: Home Medications Atorvastatin* [Lipitor 80 MG*] 40 mg PO 1700 02/22/18 [History Confirmed ] Ticagrelor* [Brilinta 90 MG*] 60 mg PO BID 02/22/18 [History Confirmed 02/22/18] PMH/Surg Hx/FS Hx/Imm Hx Endocrine/Hematology History: Denies: Hx Diabetes, Hx Thyroid Disease Cardiovascular History: Reports: Hx Angina, Hx Coronary Artery Disease, Hx Myocardial Infarction Denies: Hx Hypertension Respiratory History: Denies: Hx Asthma, Hx Chronic Obstructive Pulmonary Disease (COPD) GI History: Denies: Hx Ulcer Sensory History: Reports: Hx Contacts or Glasses Denies: Hx Hearing Aid Opthamlomology History: Reports: Hx Contacts or Glasses Psychiatric History: Reports: Hx Depression - MDD with PTSD - Surgical History Surgery Procedure, Year, and Place: WISDOM TEETH stent placed Infectious Disease History: No Infectious Disease History: Denies: Hx Clostridium Difficile, Hx Hepatitis, Hx Human Immunodeficiency Virus (HIV), Hx of Known/Suspected MRSA, Hx Shingles, Hx Tuberculosis, Hx Known/ Suspected VRE, Hx Known/Suspected VRSA, History Other Infectious Disease, Traveled Outside the [place] in Last 30 Days - Family History Known Family History: Positive: Cardiac Disease - CAD after 70 Negative: Hypertension, Diabetes - Social History Alcohol Use: Occasionally Substance Use Type: Reports: Marijuana Substance Use Comment - Amount & Last Used: infrequent usage Smoking Status (MU): Never Smoked Tobacco Review of Systems Positive: Other - POSITIVE: General sickness. Negative: Fever Positive: Chest Pain Positive: Shortness Of Breath Positive: Nausea, Other - POSITIVE: Appetite changes All Other Systems Reviewed And Are Negative: Yes Physical Exam - Summary Physical Exam Summary: VITAL SIGNS: Reviewed. GENERAL: Patient is a well-developed and nourished female who is lying comfortable in the stretcher. Patient is not in any acute respiratory distress. Normal exam. HEAD AND FACE: No signs of trauma. No ecchymosis, hematomas or skull depressions. No sinus tenderness. EYES: PERRLA, EOMI x 2, No injected conjunctiva, no nystagmus. EARS: Hearing grossly intact. Ear canals and tympanic membranes are within normal limits. MOUTH: Oropharynx within normal limits. NECK: Supple, trachea is midline, no adenopathy, no JVD, no carotid bruit, no c- spine tenderness, neck with full ROM. CHEST: Symmetric, no tenderness at palpation LUNGS: Clear to auscultation bilaterally. No wheezing or crackles. CVS: Regular rate and rhythm, S1 and S2 present, no murmurs or gallops appreciated. ABDOMEN: Soft, non-tender. No signs of distention. No rebound no guarding, and no masses palpated. Bowel sounds are normal. EXTREMITIES: FROM in all major joints, no edema, no cyanosis or clubbing. NEURO: Alert and oriented x 3. No acute neurological deficits. Speech is normal and follows commands. SKIN: Dry and warm Triage Information Reviewed: Yes Vital Signs On Initial Exam: Initial Vitals Temp Pulse Resp BP Pulse Ox 98.1 F 79 16 135/76 99 02/22/18 15:10 02/22/18 15:10 02/22/18 15:10 02/22/18 15:10 02/22/18 15:10 Vital Signs Reviewed: Yes Diagnostics - Vital Signs Vital Signs Temp Pulse Resp BP Pulse Ox 02/22/18 15:10 98.1 F 79 16 135/76 99 - Laboratory Result Diagrams: 02/22/18 15:28 02/22/18 15:28 Lab Statement: Any lab studies that have been ordered have been reviewed, and results considered in the medical decision making process. - Radiology CXR Radiology Interpretation Completed By: Radiologist - No evidence for acute intrathoracic disease. ED PHYSICIAN REVIEWED THIS RADIOLOGY REPORT. - EKG 1523 Cardiac Rate: NL - 76 BPM EKG Rhythm: Sinus Rhythm - [address] Segment: Normal - No ST Elevations Chest Pain Course/Dx - Course Assessment/Plan: A 37 y/o female presents to ED c/o of chest pain reaching 6/10 in severity. Currently, the patient is still experiencing chest pain reaching 4/ 10 in severity. As per triage, "chest pains, had an OR in September; left ant. descending stent; woke her from sleep @0400, radiating to back". According to the patient, she was woken up to experiencing severe heartburn at 0400 this morning. She noted that the heart burn did get slightly better, but it has been intermittent. She characterized the pain as pressure, however, sometimes she feels a sharp pain that goes through her back and jaw. She noted that she had a OR in September of 2016 and her symptoms are similar to what she felt pre-OR. She additionally noted that the symptoms started to get better, but then become worse, waxing and waning. Additional symptoms include difficulty breathing, nausea, appetite changes and general sickness. Patient is currently on Brilinta. Last stress test was done at [facility] [place] in July 2017 which came back negative. Last Fall, she underwent cardiac rehab. PMHx of no DM, HLD and HTN, has a stent in place. 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 No NTG was taken. Last night's dinner consisted of root beer, small salad, chicken nuggets and popcorn. Blood work without any significant abnormality except for glucose 113. Troponin is 0.00. Chest x-ray shows no acute cardiopulmonary disease. EKG is a normal sinus rhythm without any ST elevations. I discussed the case with Dr. Breaux from cardiology and he recommends admission for this patient. In the ED course the patient was given aspirin, Lopressor and nitroglycerin. At this time the patient is feeling better. I discuss my physical exam, findings and test results with Dr. Dela Cruz from the hospitalist services and he agrees to admit patient to his services. Patient is hemodynamically stable alert and oriented x 3. - Chest Pain Differential Diagnosis/HQI/PQRI: Acute OR, ACS, Angina, CHF, Chest Wall, GI Disease, Pulmonary Edema - Diagnoses Provider Diagnoses: Chest pain due to CAD - Provider Notifications Discussed Care Of Patient With: Popeye Breaux Time Discussed With Above Provider: 16:24 Instructed by Provider To: Other - RECOMMENED PATIENT BE ADMITTED TO HOSPTIALIST. 0889 - DR. DELA CRUZ ACCEPTS PATIENT FOR ADMISSION. Discharge - Sign-Out/Discharge Documenting (check all that apply): Patient Departure - ADMIT, Sign-Out Patient - LANIE Signing out patient TO: Jey Dela Cruz Receiving patient FROM: Marquise Huerta - Discharge Plan Condition: Stable Disposition: ADMITTED TO [facility] - Billing Disposition and Condition Condition: STABLE Disposition: Admitted to [facility] - Attestation Statements Document Initiated by Scribe: Yes Documenting Scribe: Inocente Thomas Provider For Whom Phani is Documenting (Include Credential): Marquise Huerta MD Scribe Attestation: I, Inocente Thomas, scribed for Marquise Huerta MD on 02/22/18 at 1824. Scribe Documentation Reviewed: Yes Provider Attestation: The documentation as recorded by the Inocente centeno accurately reflects the service I personally performed and the decisions made by me, Marquise Huerta MD
[2018-02-22 15:41] LABS: ABS Basophils 0 10^3/ul (0-0.2); ABS Eosinophils 0.1 10^3/ul (0-0.6); ABS Lymphocytes 1.4 10^3/ul (1.0-4.8); ABS Monocytes 0.3 10^3/ul (0-0.8); ABS Neutrophils 6.4 10^3/ul (1.5-7.7); ABS Nucleated RBC 0 10^3/ul; Eosinophil % 1.1 % (0-6); Hematocrit 39 % (35-47); Hemoglobin 13.3 g/dl (12.0-16.0); Lymphocyte % 17.3 % (25-47); Mean Corpuscular HGB Conc 34 g/dl (31-36); Mean Corpuscular Hemoglobin 27 pg (27-31); Mean Corpuscular Volume 81 fL (80-97); Mean Platelet Volume 9.6 fL (7.4-10.4); Nucleated Red Blood Cells % 0.1; Platelet Count 207 10^3/ul (150-450); Red Blood Count 4.86 10^6/ul (4.00-5.40); Red Cell Distribution Width 14 % (10.5-15); White Blood Count 8.3 10^3/ul (3.5-10.8)
[2018-02-22 15:48] LABS: INR 1.06 (0.77-1.02)
[2018-02-22 15:58] LABS: EGFR Non-African American 106.9 (>60)
[2018-02-22] MEDS ORDERED: Pantoprazole IV* 40 MG IV ONE (16:20)
[2018-02-22 16:44] LABS: Urine Appearance Cloudy; Urine Blood 3+ (Negative); Urine Color Yellow; Urine Ketones Negative (Negative); Urine Protein Negative (Negative); Urine Red Blood Cell Absent (Absent); Urine Specific Gravity 1.015 (1.010-1.030); Urine Urobilinogen Negative (Negative); Urine White Blood Cell Trace(0-5/hpf) (Absent)
[2018-02-22] MEDS ORDERED: Nitroglycerin TAB 0.4 MG* 0.4 MG TAB SL PRN (16:58)
[2018-02-22] MEDS ORDERED: Atorvastatin* 40 MG TAB PO SCH (17:00)
[2018-02-22] MEDS ORDERED: Enoxaparin(*) 40 MG/0.4 ML SYR SUBCUT SCH (18:00)
[2018-02-22] MEDS: Ticagrelor* 90 MG TAB PO SCH (20:03)
--- NOTE | 2018-02-22 21:35 | HP ---
ADMITTING HISTORY AND PHYSICAL: DATE OF ADMISSION: 02/22/18 CHIEF COMPLAINT: Intermittent chest pain. HISTORY OF PRESENT ILLNESS: The patient is a 37-year-old lady with a history of CAD, status post HI with a drug-eluting stent placed in her LAD back in September of 2016, who has been in her usual state of health since last being seen in July of 2017 for chest pain and at that time, she had an exercise stress test, which was found to be low risk and hence she was discharged on her home medications and has since then asymptomatic until a few hours prior to admission when she mentioned that around 4 a.m., she woke up with chest pain that she described as pressure-like in quality and around 3-4/10 in the pain scale that radiates to her back but does not radiate to her jaw nor to her arm. She mentions that breathing in deeply exacerbates the pain. She could not identify any alleviating factors. She then presented to the ED given her significant cardiac history for further evaluation. In the ED, she was given 324 mg of aspirin and was given a one time nitroglycerin sublingual dose as well as one time IV pantoprazole 40 mg dose. PAST MEDICAL AND SURGICAL HISTORY: 1. CAD, status post HI with drug-eluting stent in her LAD back in September 2016. 2. History of depression. 3. Status post wisdom teeth extraction. MEDICATIONS: Her home medications are as follows: 1. Amlodipine 2.5 mg p.o. daily. 2. Brilinta 60 mg p.o. b.i.d. 3. Sertraline 200 mg p.o. daily. 4. Nitroglycerin 0.4 mg sublingual q. 5 minutes p.r.n. 5. Metoprolol succinate XL tab 12.5 mg p.o. daily. 6. Cetirizine 10 mg p.o. daily p.r.n. 7. Atorvastatin 40 mg p.o. daily. 8. Aspirin 81 mg p.o. daily. ALLERGIES: To LATEX. FAMILY HISTORY: Noncontributory. Denies any history of heart disease, diabetes , or hyperlipidemia in the family. SOCIAL HISTORY: She has never smoked cigarettes. She does smoke marijuana very rarely and drinks alcohol rarely. Her surrogate decision maker is her , Nirmala. REVIEW OF SYSTEMS: The patient complains of intermittent chest pain as described above that radiates to her back, but denies any headaches, dizziness, fevers, chills, nausea, vomiting, shortness of breath, increased cough and/or sputum production, abdominal pain, diarrhea, constipation, pain, and/or increased frequency on urination, myalgias, arthralgias, throat pain, or new skin lesions. The rest of the 14-point review of systems are otherwise unremarkable. PHYSICAL EXAMINATION VITAL SIGNS: Reveals the most recent vital signs of records with blood pressure of 135/76, 98.1 degrees Fahrenheit, 79 beats per minute heart rate, 16 per minute respiratory rate, saturating at 99% on room air. GENERAL APPEARANCE: The patient is awake, alert, and oriented x3, not in acute distress. HEENT: Normocephalic, atraumatic. PERRLA. Extraocular muscles intact. Negative for icterus. Moist oral mucosa. Negative throat erythema. NECK: Soft, supple with no cervical lymphadenopathy. No JVD. CHEST: Clear to auscultation bilaterally. Good air entry. No wheezes, rales, or rhonchi. HEART: S1, S2 within normal limits. Regular rate and rhythm. No murmurs, rubs , or gallops. ABDOMEN: Soft, nondistended, nontender. Normoactive bowel sounds x4 quadrants. EXTREMITIES: No cyanosis, clubbing or edema. PSYCHIATRIC: No active psychosis, depression, suicidal or homicidal ideation. SKIN: Warm to touch. ASSESSMENT AND PLAN: The patient is a 37-year-old lady with history of depression, coronary artery disease, status post myocardial infarction, status post drug-eluting stent placement in her LAD in September 2016, who presents with atypical intermittent chest pain. 1. Chest pain. Given her significant cardiac history, given its atypical presentation, we will admit her for observation on telemetry. We will continue high-dose aspirin at this time until ACS has been ruled out. We will continue with her metoprolol and p.r.n. nitroglycerin and p.r.n. oxygen to maintain sats greater than or equal to 90%. We will also obtain an exercise stress test tomorrow and we will perform an echocardiogram as well. 2. History of coronary artery disease. Continue aspirin, statin, metoprolol, p.r.n. nitroglycerin, and Brilinta as described above. 3. History of depression, well controlled. Continue Zoloft. 4. DVT prophylaxis. We will place the patient on DVT prophylaxis and we will await d-dimer testing to rule out PE given chest pain. 5. Disposition. As above. [id number]/[facility] #: [id number] MTDD
--- NOTE | 2018-02-22 23:58 | PN ---
Hospitalist Progress Note Date of Service: 02/22/18 signed out to check trop at 10 pm---> was not ordered in cpoe ---> ordered stat for now
[2018-02-23 04:40] LABS: ABS Basophils 0 10^3/ul (0-0.2); ABS Eosinophils 0.2 10^3/ul (0-0.6); ABS Lymphocytes 2.4 10^3/ul (1.0-4.8); ABS Monocytes 0.8 10^3/ul (0-0.8); ABS Neutrophils 5.8 10^3/ul (1.5-7.7); ABS Nucleated RBC 0 10^3/ul; Eosinophil % 2.3 % (0-6); Hematocrit 39 % (35-47); Hemoglobin 13.1 g/dl (12.0-16.0); Lymphocyte % 26.4 % (25-47); Mean Corpuscular HGB Conc 34 g/dl (31-36); Mean Corpuscular Hemoglobin 27 pg (27-31); Mean Corpuscular Volume 81 fL (80-97); Mean Platelet Volume 9.5 fL (7.4-10.4); Nucleated Red Blood Cells % 0.1; Platelet Count 210 10^3/ul (150-450); Red Blood Count 4.79 10^6/ul (4.00-5.40); Red Cell Distribution Width 14 % (10.5-15); White Blood Count 9.3 10^3/ul (3.5-10.8)
[2018-02-23] MEDS ORDERED: Sertraline* 100 MG TAB PO SCH (09:00)
[2018-02-23] MEDS ORDERED: Aspirin TAB* 325 MG PO ONE (09:00)
[2018-02-23] MEDS ORDERED: amLODIPine TAB* 5 MG PO SCH (09:00)
[2018-02-23] MEDS ORDERED: Metoprolol Succinate XL TAB* 25 MG PO SCH (09:00)
[2018-02-23 11:13] VITALS: BP 113/63
[2018-02-23] MEDS: Ticagrelor* 90 MG TAB PO SCH (11:36)
--- NOTE | 2018-02-23 14:43 | CONS ---
CC: Migue Saucedo NP, [facility] * CARDIOLOGY CONSULTATION: DATE OF CONSULT: 02/23/18 INDICATIONS FOR CONSULTATION: Chest pain, coronary artery disease. HISTORY OF PRESENT ILLNESS: The patient is a 37-year-old female, who had an acute myocardial infarction back in September of 2016, at that time she had an occluded LAD. She had a stent to her LAD, it was a 2.25 x 38 mm Synergy stent. The patient had been doing well until this morning when she woke up about 3:00 in the morning with epigastric pain and chest pain. She said it was stuttering on and off for about half an hour or so. She took nitroglycerin and Tums that did not change its character and decided to come to the emergency room. On arrival to the emergency room, her EKG showed normal sinus rhythm with normal axis and intervals, no evidence of ST segment depression. Her troponin levels were unremarkable. The patient was admitted for evaluation. The patient underwent an exercise nuclear stress test today. She exercised for an 11-minute. She had no chest pain. She had no EKG changes. Her nuclear images showed normal perfusion throughout the myocardia. There was apical dropout, but no evidence of ischemia. In speaking with the patient this morning , the patient has no pain. She has had no episodes of chest pain or shortness of breath, no palpitations, no lightheadedness or dizziness prior to 4:00 this morning. OUTPATIENT MEDICATIONS: 1. Zoloft 100 mg a day. 2. Zyrtec 10 mg a day. 3. Aspirin 81 mg a day. 4. Amlodipine 2.5 mg a day. 5. Metoprolol succinate 12.5 mg a day. 6. Brilinta 60 mg b.i.d. 7. Atorvastatin 40 mg a day. ALLERGIES: To LATEX. FAMILY HISTORY: Noncontributory. SOCIAL HISTORY: She works as a teacher. She denies tobacco or alcohol use. She does exercise regularly. PHYSICAL EXAMINATION: Height is 5 feet 9 inches, weight is 194 pounds, temperature 98.2, heart rate is 61, blood pressure 105/54, respiratory rate is 18, oxygen saturation 99% on room air. Sclerae anicteric. Oropharynx is pink without erythema. Carotids are 2+ without bruits. JVD is normal. Thyroid is normal. Cardiac Exam: S1, S2 without any murmurs, rubs, or gallops. Lungs are clear to auscultation. Extremities show no edema. She had 2+ pulses throughout. The patient is awake, alert, and oriented. She moves all 4 extremities equally. LABORATORY DATA/DIAGNOSTIC STUDIES: CBC within normal limits. Chemistries within normal limits. Troponins are negative x3. Her exercise nuclear stress test was unremarkable. IMPRESSION: This is a 37-year-old female with a history of an anterior wall myocardial infarction, history of stenting to her LAD, who came in with chest pain. Her troponins were negative. Her stress test was unremarkable. At this point, I do not think any work up is necessary. I am not convinced she was having any acute coronary syndrome. The patient is to followup with our office in 2 to 3 weeks. [id number]/[facility] #: [id number] MEGHANN
--- NOTE | 2018-02-23 22:17 | DS ---
CC: Dr. Marquise Huerta; Dr. Popeye Breaux; Migue Saucedo NP DISCHARGE SUMMARY: DATE OF ADMISSION: DATE OF DISCHARGE: 02/23/18 DISCHARGE DIAGNOSES: As follows: 1. Chest pain, pleuritic, noncardiac, described as burning, possibly due to gastroesophageal reflux disease. 2. Coronary artery disease, history of. 3. Depression, history of. DISCHARGE MEDICATIONS: As follows: 1. Amlodipine 2.5 mg p.o. daily. 2. Atorvastatin 40 mg p.o. daily. 3. Metoprolol succinate 12.5 mg p.o. daily. 4. Nitroglycerin 0.4 mg sublingual q.5 minutes p.r.n. 5. Sertraline 200 mg p.o. daily. 6. Ticagrelor or Brilinta 60 mg p.o. b.i.d. 7. Maalox Plus 30 mL p.o. q.6 p.r.n. for dyspepsia, reflux, or chest pain similar to the quality of pain she described in this admission. 8. Aspirin 81 mg p.o. daily. 9. Cetirizine 10 mg p.o. daily. 10. Pantoprazole 40 mg p.o. b.i.d. for 6 weeks, then daily thereafter. HISTORY OF PRESENT ILLNESS/HOSPITAL COURSE: The patient is a 37-year-old lady with a history of CAD, status post CO with drug-eluting stent that was placed in her LAD back in September of 2016, who has been in her usual state of health since July of 2017 where she was admitted for chest pain at that time and had an exercise stress test, which was found to be of low risk. She was then discharged on her home medications and since then has been asymptomatic until a few hours prior to admission when she mentioned at around 4 a.m. she woke up with chest pain that she initially described as pressure- like in quality, around 3-4/10 in the pain scale that radiates to her back, but does not radiate to her jaw nor her arm. She did not identify any alleviating factors, but mentions that breathing in deeply exacerbates the pain a little bit. She was then admitted for observation to rule out ACS and to obtain an exercise stress test along with an echocardiogram. Her troponins overnight were all negative x3 and hence ACS has been ruled out. She has also been ruled out for venous thromboembolism given her D-dimer is less than 200 and in addition her stress test reveals low risk with an EF of 70% with no identified wall motion abnormalities. She had been advised to follow up and/or call her PCP within 3 days post discharge and if her symptoms resume or develop new ones or feel unwell for any reason, to call her PCP first and if her PCP cannot entertain her due to scheduling issues alone, to call [facility] if the issue is considered nonemergent. She was advised to call my office regarding any questions, concerns, or further clarifications regarding her discharge plans and/or prescriptions and to take her medications as prescribed. She was advised that likely her chest pain is noncardiac in nature and given her modified description this morning that it is more of burning and she also mentions the word reflux that this is likely due to GERD and hence we will prescribe her a trial of pantoprazole b.i.d. for 6 weeks, then daily as well as with p.r.n. Maalox Plus. She agrees with the above assessment and plan. I have canceled the 2D echo given the results of the stress test above. REVIEW OF SYSTEMS: She currently denies any headaches, dizziness, fevers, chills. Again, still complains of some pleuritic chest pain. Denied any abdominal pain, diarrhea, constipation, pain and/or increased frequency on urination, myalgias, arthralgias, throat pain, or new skin lesions. The rest of the 14-point review of systems other than what was described is all unremarkable. PHYSICAL EXAMINATION: Reveals the most recent vital signs of record with blood pressure of 104/65, 98.1 degrees Fahrenheit, ____ beats per minute heart rate, 14 per minute respiratory rate, saturating at 99% on room air. General Appearance: The patient is awake, alert, and oriented x3, not in acute distress. HEENT: Normocephalic, atraumatic. PERRLA. Extraocular muscles intact. Negative for icterus. Moist oral mucosa. Negative throat erythema. Neck is soft, supple with no cervical lymphadenopathy, no JVD. Heart: S1, S2 within normal limits. Regular rate and rhythm. No murmurs, rubs, or gallops. Chest: Clear to auscultation bilaterally. Good air entry. No wheezes, rales, or rhonchi. Abdomen is soft, nondistended, nontender. Normoactive bowel sounds x4 quadrants. Extremities: No cyanosis, clubbing, or edema. Psychiatric: No active psychosis, depression, suicidal or homicidal ideation. Skin is warm to touch. TIME SPENT: The total time spent evaluating the patient, reviewing pertinent data, and appropriate documentation is 40 minutes. [id number]/[facility] #: [id number] [facility]ITAL[facility]
== END 2018-02-23 12:00 | disposition home or self-care (01) ==
LOC: ED 15:09 → MEDTELE 16:56
PROVIDERS: ADMIT Student in an Organized Health Care Education/Training Program; ATTEND Student in an Organized Health Care Education/Training Program
DX: R07.89 Other chest pain (principal); I25.10 Atherosclerotic heart disease of native coronary artery without angina pectoris; F32.9 Major depressive disorder, single episode, unspecified; I25.2 Old myocardial infarction; Z95.5 Presence of coronary angioplasty implant and graft; Z91.040 Latex allergy status
CPT/HCPCS: 36415; 71045; 78452; 80053; 81003; 81015; 82550; 82553; 83605; 83735; 83880; 84100; 84443; 84484; 84702; 85025; 85379; 85610; 85730; 87086; 93005; 93017; 96374; 99284; A9270-GY; A9502; G0378; J1650

== ENCOUNTER 2018-09-04 12:42 | Emergency (ER) | payer BC ==
[2018-09-04] MEDS ORDERED: Nitro 2% OINT* (Nitroglycerin) 1 INCH/PAK PAK TOPICAL ONE (12:51)
[2018-09-04 13:22] LABS: ABS Eosinophils 0.1 10^3/ul (0-0.6); ABS Lymphocytes 2.2 10^3/ul (1.0-4.8); ABS Monocytes 0.6 10^3/ul (0-0.8); ABS Neutrophils 4.5 10^3/ul (1.5-7.7); Eosinophil % 1.9 %; Hematocrit 37 % (35-47); Hemoglobin 12.1 g/dL (12.0-16.0); Lymphocyte % 29.3 %; Mean Corpuscular HGB Conc 33 g/dL (31-36); Mean Corpuscular Hemoglobin 26 pg (27-31); Mean Corpuscular Volume 79 fL (80-97); Mean Platelet Volume 9.6 fL (7.4-10.4); Nucleated Red Blood Cells % 0.1; Platelet Count 225 10^3/uL (150-450); Red Blood Count 4.63 10^6 /uL (3.70-4.87); Red Cell Distribution Width 15 % (10.5-15); White Blood Count 7.5 10^3/uL (3.5-10.8)
--- NOTE | 2018-09-04 13:24 | ED ---
HPI Chest Pain - HPI Summary HPI Summary: This patient is a 38 year old F presenting to ED with a chief complaint of chest pain since 1000. Patient states it felt like she had swallowed a balloon with pressure to the left side of the chest. Patient took her aspirin and Brilinta today. Patient took NTG which improved the pain. She has one stent in place. She reports this time feels a little bit like her previous MT, but she does not have the nausea she had last time. In the room, the patient reports no more pain but only slight lightheadedness and dizziness. The patient rates the pain 2/10 in severity. Symptoms aggravated by nothing. Symptoms alleviated by NTG. Patient reports backs of both arms hurting, pinky fingers falling sleep, and mild SOB before taking NTG. Patient denies nausea. PMHx of angina, CAD, MT no HLD, HTN, DM. PSHx of stent. FHx of cardiac disease. Patient uses alcohol and marijuana but not tobacco. Last period was 2.5 weeks ago, patient denies being . - History of Current Complaint Chief Complaint: EDChestPainROMI Hx Obtained From: Patient Hx Last Menstrual Period: today Onset/Duration: Started Hours Ago - 1000 this morning, Resolved Initial Severity: Mild Current Severity: Mild Pain Intensity: 2 Pain Scale Used: 0-10 Numeric Chest Pain Location: Left Anterior Chest Pain Radiates: No Character: Pressure/Squeezing, Other: - "Swallowed a balloon" Aggravating Factor(s): Nothing Alleviating Factor(s): NTG 123 Associated Signs and Symptoms: Positive: Dizziness, Shortness of Breath, Lightheadedness, Other: - Backs of arms hurting, pinky fingers falling asleep. Negative: Nausea Related History: Similar Episode/Dx as: - Previous MT, but no nausea this time - Additional Pertinent History Primary Care Physician: [id number] - Allergy/Home Medications Allergies/Adverse Reactions: Allergies Allergy/AdvReac Type Severity Reaction Status Date / Time latex Allergy Intermediate Hives Verified 02/22/18 16:54 Home Medications: Home Medications Ticagrelor (NF) [Brilinta 60 MG TAB] 60 mg PO BID 09/04/18 [History Confirmed ] PMH/Surg Hx/FS Hx/Imm Hx Endocrine/Hematology History: Denies: Hx Diabetes, Hx Thyroid Disease Cardiovascular History: Reports: Hx Angina, Hx Coronary Artery Disease, Hx Myocardial Infarction Denies: Hx Hypercholesterolemia, Hx Hypertension Respiratory History: Denies: Hx Asthma, Hx Chronic Obstructive Pulmonary Disease (COPD) GI History: Denies: Hx Ulcer Sensory History: Reports: Hx Contacts or Glasses Denies: Hx Hearing Aid Opthamlomology History: Reports: Hx Contacts or Glasses Psychiatric History: Reports: Hx Depression - MDD with PTSD - Surgical History Surgery Procedure, Year, and Place: WISDOM TEETH stent placed Infectious Disease History: No Infectious Disease History: Denies: Hx Clostridium Difficile, Hx Hepatitis, Hx Human Immunodeficiency Virus (HIV), Hx of Known/Suspected MRSA, Hx Shingles, Hx Tuberculosis, Hx Known/ Suspected VRE, Hx Known/Suspected VRSA, History Other Infectious Disease, Traveled Outside the [place] in Last 30 Days - Family History Known Family History: Positive: Cardiac Disease - CAD after 70 Negative: Hypertension, Diabetes - Social History Alcohol Use: Occasionally Hx Substance Use: Yes Substance Use Type: Reports: Marijuana Substance Use Comment - Amount & Last Used: infrequent usage Hx Tobacco Use: No Smoking Status (MU): Never Smoked Tobacco Review of Systems Positive: Chest Pain Positive: Shortness Of Breath Negative: Nausea Musculoskeletal: Other - Backs of arms hurting, pinky fingers falling asleep Neurological: Other - Lightheadedness and dizziness All Other Systems Reviewed And Are Negative: Yes Physical Exam - Summary Physical Exam Summary: Appearance: well appearing, no pain distress Skin: warm, dry, reflects adequate perfusion Head/face:normal Eyes:EOMI, BEAR ENT: mucous membranes moist Neck: supple, non-tender Respiratory: CTA, breath sounds present Cardiovascular:RRR, pulses symmetrical Abdomen: non-tender, soft Bowel Sounds:present Musculoskeletal:normal, strength/ROM intact Neuro:normal, sensory motor intact, A&Ox3 Triage Information Reviewed: Yes Vital Signs On Initial Exam: Initial Vitals Temp Pulse Resp BP Pulse Ox 98.8 F 91 20 149/88 98 09/04/18 12:46 09/04/18 12:46 09/04/18 12:46 09/04/18 12:46 09/04/18 12:46 Vital Signs Reviewed: Yes Diagnostics - Vital Signs Vital Signs Temp Pulse Resp BP Pulse Ox 09/04/18 12:46 98.8 F 91 20 149/88 98 - Laboratory Result Diagrams: 09/04/18 12:58 09/04/18 12:58 Lab Statement: Any lab studies that have been ordered have been reviewed, and results considered in the medical decision making process. - Radiology CXR Radiology Interpretation Completed By: Radiologist Summary of Radiographic Findings: No evidence for acute intrathoracic disease. Dr. Dotson has reviewed this radiology report. - EKG 1242 Cardiac Rate: NL - 79 BPM EKG Rhythm: Sinus Rhythm ST Segment: Normal Summary of EKG Findings: Normal EKG. NSR: 79 BPM. Normal [place]. Normal Interval. Normal ST Re-Evaluation - Re-Evaluation First Eval Re-Evaluation Time: 14:15 Comment: Discussed results with patient. Patient reports no chest pain but slight headache from NTG. Second Eval Re-Evaluation Time: 15:51 Comment: Discussed results with patient. Patient will be discharged home with dx of chest pain and history of MT. Patient understands and agrees with this plan. Chest Pain Course/Dx - Course Course Of Treatment: Patient with anatomic reason for LAD MT in the past. Here her pain is resolved and troponin 2 has been negative. She has presented a couple times with chest pain like this. She has not followed up with cardiology. I spoke with her operations business partner who agrees with discharge and close follow-up in the outpatient setting with a noninterventional operations business partner in his practice. - Chest Pain Differential Diagnosis/HQI/PQRI: Acute MT, ACS, Angina, Aortic Aneurysm, CHF, Lower Respiratory Infection - Diagnoses Provider Diagnoses: Chest pain, History of MT (myocardial infarction) - Provider Notifications Discussed Care Of Patient With: Ranulfo Melo Time Discussed With Above Provider: 14:25 Instructed by Provider To: Other - Discussed patient case with Dr. Melo who recommended second troponin and follow-up with cardiology. Discharge - Sign-Out/Discharge Documenting (check all that apply): Patient Departure - Discharge Patient Received Moderate/Deep Sedation with Procedure: No - Discharge Plan Condition: Improved Disposition: HOME Patient Education Materials: Chest Pain (ED) Referrals: Vargas Reaves MD [Medical Doctor] - Migue Saucedo NP [Primary Care Provider] - Additional Instructions: Call first thing Friday morning to schedule prompt follow-up with her operations business partner. Also follow-up with your doctor. Return with repeat chest pain, difficulty breathing, worse, new symptoms or other concerns as discussed. Continue aspirin and Bralinta daily. - Billing Disposition and Condition Condition: IMPROVED Disposition: Home - Attestation Statements Document Initiated by Phani: Yes Documenting Scribe: Ralf Horn Provider For Whom Phani is Documenting (Include Credential): Aba Dotson MD Scribe Attestation: IRalf, scribed for Aba Dotson MD on 09/04/18 at 1905. Scribe Documentation Reviewed: Yes Provider Attestation: The documentation as recorded by the Ralf centeno accurately reflects the service I personally performed and the decisions made by me, Aba Dotson MD Status of Scribe Document: Viewed
[2018-09-04 13:30] LABS: INR 1.03 (0.82-1.09)
[2018-09-04 13:38] LABS: Albumin 4.5 g/dL (3.2-5.2); Albumin/Globulin Ratio 1.5 (1-3); BUN/Creatinine Ratio 21.3 (8-20); Calcium 9.5 mg/dL (8.6-10.3); EGFR African American 133.5 (>60); EGFR Non-African American 110.4 (>60); Globulin 3.1 g/dL (2-4); Potassium 3.9 mmol/L (3.5-5.0); Total Bilirubin 0.4 mg/dL (0.2-1.0); Total Protein 7.6 g/dL (6.4-8.9)
[2018-09-04 15:56] VITALS: BP 132/75
== END 2018-09-04 15:56 | disposition home or self-care (01) ==
LOC: ED 12:42
DX: R07.9 Chest pain, unspecified (principal); R42 Dizziness and giddiness; R06.02 Shortness of breath; I25.2 Old myocardial infarction; I25.10 Atherosclerotic heart disease of native coronary artery without angina pectoris
CPT/HCPCS: 36415; 71045; 80053; 84484; 84702; 85025; 85610; 93005; 99283